=== PATIENT | female | born 1965 | race Caucasian/White ===

== ENCOUNTER 2016-02-28 15:47 | Emergency (ER) | payer OTHER ==
[~2016-02-28] VITALS: Ht 170.2 cm; Wt 80.7 kg
[~2016-02-28 15:47] MED LIST: BENADRYL ALLERG25 MG PO; KEFLEX500 M1 PO; MUPIROCIN22 GM TOP; NAPROSYN500 M1 PO; OMEPRAZOLE40 M1 PO; OXYCODONE HCL15 M1 PO; PEPCID20 MG PO; PREDNISONE 20MG20 MG PO; SERTRALINE HCL100 MG PO; SULFAMETHOXAZO1 EAC1 PO; TRIAMTERENE-HC1 EAC1 PO; ZOHYDRO ER50 M1 PO
--- NOTE | 2016-02-28 16:14 | ED UPPER/LOWER EXTREMITY COMPL ---
History of Present Illness General Chief Complaint: Lower Extremity Problems Stated Complaint: RIGHT LEG SWOLLEN AND HOT X1 DAY Source: patient, old records Exam Limitations: no limitations Vital Signs & Intake/Output Vital Signs & Intake/Output Vital Signs Date Time Temp Pulse Resp B/P Pulse O2 O2 Flow FiO2 Ox Delivery Rate 02/27 1722 98.1 69 16 132/74 100 Room Air 02/27 1630 99 Room Air 02/27 1552 97.9 69 16 156/84 94 Room Air Allergies Coded Allergies: Penicillins (UNKNOWN 07/24/15) vancomycin (UNKNOWN 07/24/15) Reconcile Medications Cephalexin (Keflex) 500 MG CAPSULE 1 TAB PO BID CELLULITIS Clindamycin HCl 300 MG CAPSULE 1 CAP PO TID cellulitis DIPHENHYDRAMINE HCL (Benadryl Allergy) 25 MG TABLET 1-2 TAB PO Q6P PRN allergy Famotidine (Pepcid) 20 MG TAB 1 TAB PO BID allergy Hydrocodone Bitartrate (Zohydro ER) 50 MG CAP.ER.12H 1 CAP PO BID PAIN ( Reported) Mupirocin 22 GM OINT...G. 1 PAULO TOP TID EAR (Reported) apply to affected area(s) Naproxen (Naprosyn) 500 MG TABLET 1 TAB PO BID PRN PAIN AND INFLAMMATION Omeprazole 40 MG CAPSULE.DR 1 CAP PO DAILY GI (Reported) Oxycodone HCl 15 MG TABLET 1 TAB PO 4 TIMES/DAY PAIN (Reported) Prednisone 20 MG TABLET 1 TAB PO BID allergy Sertraline HCl 100 MG TABLET 1 TAB PO DAILY MENTAL HEALTH (Reported) Sulfamethoxazole/Trimethoprim (Sulfamethoxazole-Tmp Ds Tablet) 1 EACH TABLET 1 TAB PO BID INFECTION (Reported) Triamterene/Hydrochlorothiazid (Triamterene-Hctz 37.5-25 MG Tb) 1 EACH TABLET 1 TAB PO DAILY HEART (Reported) Triage Note: PT STATES HE RIGHT LOWER EXT. IS SWOLLEN AND WARM. PT STATES THIS STARTED YESTERDAY. Triage Nurses Notes Reviewed? yes Onset: Abrupt Duration: day(s): (1), constant Timing: recent history Severity: mild, moderate Severity Numbers: 5 Pain/Injury Location: Right: Leg. Method of Injury: unknown No Modifying Factors: none Associated Symptoms: redness HPI: 50-year-old female presents to emergency room complaining of redness warmth and pain to her right lower extremity for the past 1 day. She states that she just shaved her legs however denies any known injury or trauma she denies any cuts or abrasions. No fever no chills no numbness or tingling. She denies any other rashes on her skin. She denies any other leg swelling chest pain shortness of breath. Symptoms are worse with palpation better at rest. She denies any other modifying factors or associated symptoms otherwise pain is aching and constant 5 out of 10 nonradiating. She is not taken anything for her symptoms (AMARILYS DAVIDSON) Past History Travel History Traveled to [place] past 21 day No Medical History Any Pertinent Medical History? see below for history Respiratory: asthma Gastrointestinal: GASTRIC BYPASS Musculoskeletal: CHRONIC HIP PAIN Tetanus Vaccine: 05/18/09 Surgical History Surgical History: non-contributory Psychosocial History What is your primary language Romansh Tobacco Use: Current Daily Use Daily Tobacco Use Amount/Type: => 5 Cigarettes daily ETOH Use: occasional use Illicit Drug Use: denies illicit drug use Family History Hx Contributory? No (AMARILYS DAVIDSON) Review of Systems Review of Systems Constitutional: Reports: see HPI. All Other Systems: Reviewed and Negative Comments Review of systems: See HPI, All other systems negative. Constitutional, no chills no fever, no malaise HEENT: no sore throat no congestion, no ear pain Cardiovascular: No chest pain , no palpitation Skin, see hpi Respiratory: No dyspnea no cough no sputum GI: No nausea no vomiting, no diarrhea, : No dysuria Muscle skeletal: No joint pain, no joint swelling, no back pain, no neck pain, Neurologic: , no headache Psych: No stress Heme/endocrine: No bruising no bleeding Immunology: No lymphadenopathy (AMARILYS DAVIDSON) Physical Exam Physical Exam General Appearance: well developed/nourished, alert, awake Comments: Well-developed well-nourished patient in no apparent distress. HEENT: Atraumatic, extraocular motion intact Neck: Supple, FROM Back: FROM Cardiovascular: Regular rate and rhythms no murmurs rubs Respiratory: No respiratory distress. Patient speaking in full complete sentences. Breath sounds clear to auscultation bilaterally: NO W/R/R upper Extremities: full range of motion Hip/Pelvis: Atraumatic/Stable. FROM Knee: Atraumatic/stable. FROM. No joint swelling, no effusion. No laxity. No pain with ROM Leg: Atraumatic. Nontender. No edema, 5 out of 5 strength in the lower extremity, normal dorsiflexion of great toe bilaterally, gross sensation is intact. Ankle/Foot: Atraumatic/stable. Skin intact. FROM. No swelling, no effusion. No laxity on exam Pulses: Normal/equal DP/PT pulses bilaterally. Brisk cap refill Neuro: Alert and oriented x3 Skin: Warm & dry; 8 x 7 cm area of erythema, warmth and tenderness over the medial aspect of the proximal right calf and anterior Trejo the skin is intact, no other rashes to the exposed skin Psych: Mood affect normal, normal memory normal judgment. (BRANDON SEVILLA,AMARILYS) Progress Differential Diagnosis: arterial insufficiency, cellulitis, compartment syndrome , contusion, dislocation, DVT, fracture, sprain Plan of Care: Discussed with the patient her ultrasound results symptoms are consistent with a cellulitis. Given allergies prescription for clindamycin was provided she'll follow up with her primary care physician for wound check in 48 hours. She'll return at that time if the symptoms persist and is unable to get in with her primary care physician. I answered all of her questions she was advised return anytime sooner with any concerns. I answer all of her questions she feels comfortable discharge plan of follow-up Diagnostic Imaging: Viewed by Me: Ultrasound. Discussed w/RAD: Ultrasound. Radiology Impression: PATIENT: RAMU ESPARZA PRESENT AGE: 50 PATIENT ACCOUNT NO: [id number] : 66 LOCATION: [facility] ORDERING PHYSICIAN: AMARILYS SEVILLA SERVICE DATE: 02/28/16 EXAM TYPE: US - US- UNILATERAL VENOUS DOPPLER EXAMINATION: US TRIPLEX LOWER EXTREMITY, RIGHT CLINICAL INFORMATION: Edema. COMPARISON: None. TECHNIQUE: Color-flow triplex imaging with spectral analysis and compression Doppler were performed on the right lower extremity. FINDINGS: Respiratory variation, normal compression and augmented flow are noted throughout the lower extremity. The visualized common femoral vein, superficial femoral vein, profunda femoral vein, popliteal vein and mid calf peroneal and posterior tibial venous segments show no evidence of deep venous thrombosis. There is no Mccord's cyst. There is a lymph node with normal ultrasound morphology with a short axis diameter of 1 cm in the right groin. IMPRESSION: Normal triplex scan without evidence of deep venous thrombosis involving the right lower extremity. DICTATED BY: CHAZ SUÁREZ MD DATE/TIME DICTATED:02/28/161647 POL[employer]UT[employer]NT PRECINCT:ELI DATE/TIME TRANSCRIBED:02/28/161647 CONFIDENTIAL, DO NOT COPY WITHOUT APPROPRIATE AUTHORIZATION. <Electronically signed in Other Vendor System> SIGNED BY: CHAZ SUÁREZ MD 02/28/16 1653 (AMARILYS DAVIDSON) Departure Departure Time of Disposition: 170 Disposition: HOME OR SELF CARE Condition: Stable Clinical Impression Primary Impression: Cellulitis Referrals: AMINATA SKELTON,JESUS MURPHY (PCP/Family) Additional Instructions: Follow-up with your primary care physician this week for wound check. Clindamycin as directed this prescription was sent here pharmacy. Return to the emergency room at any time sooner if you have worsening of your symptoms or any other concerns. Departure Forms: Customer Survey General Discharge Information Prescriptions: Current Visit Scripts Clindamycin HCl 1 CAP PO TID #30 CAP (AMARILYS DAVIDSON) PA/ACID WASHER OPERATOR Co-Sign Statement Statement: ED Attending supervision documentation- [] I saw and evaluated the patient. I have also reviewed all the pertinent lab results and diagnostic results. I agree with the findings and the plan of care as documented in the PA's/ACID WASHER OPERATOR's documentation. [X] I have reviewed the ED Record and agree with the PA's/ACID WASHER OPERATOR's documentation. [] Additions or exceptions (if any) to the PAs/ACID WASHER OPERATOR's note and plan are summarized below: [] (GRANT SKELTON,LEDA)
--- NOTE | 2016-02-28 16:53 | ULTRASOUND REPORT ---
EXAMINATION: US TRIPLEX LOWER EXTREMITY, RIGHT CLINICAL INFORMATION: Edema. COMPARISON: None. TECHNIQUE: Color-flow triplex imaging with spectral analysis and compression Doppler were performed on the right lower extremity. FINDINGS: Respiratory variation, normal compression and augmented flow are noted throughout the lower extremity. The visualized common femoral vein, superficial femoral vein, profunda femoral vein, popliteal vein and mid calf peroneal and posterior tibial venous segments show no evidence of deep venous thrombosis. There is no Mccord's cyst. There is a lymph node with normal ultrasound morphology with a short axis diameter of 1 cm in the right groin. IMPRESSION: Normal triplex scan without evidence of deep venous thrombosis involving the right lower extremity.
[2016-02-28] MEDS ORDERED: CLINDAMYCIN HC300 M1 PO (17:08)
[2016-02-28 17:22] VITALS: BP 132/74
== END 2016-02-28 17:23 ==
LOC: ERH 15:47
DX: L03.115 Cellulitis of right lower limb (principal)

== ENCOUNTER 2016-03-01 14:11 | Inpatient (IN) | payer OTHER ==
[~2016-03-01] VITALS: Ht 170.2 cm; Wt 80.7 kg
[~2016-03-01 14:11] MED LIST changes: +CLINDAMYCIN HC300 M1 PO
--- NOTE | 2016-03-01 14:16 | NUR ---
PT TO ED C/O WORSENING RLE CELLULITIS. PT WAS SEEN IN ED ON 02/27, SENT HOME WITH PO CLINDAMYCIN TID. HAS BEEN TAKING PRESCRIBED. STATES PAIN IS WORSE. REDNESS IS SPREADING AND LEG IS WARM TO TOUCH. DENIES FEVERS AT HOME. TEMP 100.9 IN TRIAGE.
--- NOTE | 2016-03-01 14:34 | NUR ---
PT TO ROOM 8, C/O PAIN AND REDNESS TO RIGHT LEG. PT REPORTS CELLULITIS HAS SPREAD FROM BELOW KNEE UP TO THIGH AREA AND IS PAINFUL. RLE IS MORE SWOLEN THAN LLE.
--- NOTE | 2016-03-01 15:00 | NUR ---
ROEL TAYLOR AT BEDSIDE FOR EVAL
--- NOTE | 2016-03-01 15:04 | ED SKIN/ALLERGY COMPLAINT ---
History of Present Illness General Chief Complaint: Skin Rash/ Abcess Stated Complaint: R LEG CELLULITIS, SEEN 02/27 NO RELIEF Source: patient, old records Exam Limitations: no limitations Vital Signs & Intake/Output Vital Signs & Intake/Output Vital Signs Date Time Temp Pulse Resp B/P Pulse O2 O2 Flow FiO2 Ox Delivery Rate 03/01 1628 99.4 106 16 116/71 99 Room Air 03/01 1431 Room Air 03/01 1414 100.7 76 20 125/78 99 Room Air Allergies Coded Allergies: Penicillins (UNKNOWN 07/24/15) vancomycin (UNKNOWN 07/24/15) Reconcile Medications Clindamycin HCl 300 MG CAPSULE 1 CAP PO TID cellulitis DIPHENHYDRAMINE HCL (Benadryl Allergy) 25 MG TABLET 1-2 TAB PO Q6P PRN allergy Hydrocodone Bitartrate (Zohydro ER) 50 MG CAP.ER.12H 1 CAP PO BID PAIN ( Reported) Omeprazole 40 MG CAPSULE.DR 1 CAP PO DAILY GI (Reported) Oxycodone HCl 15 MG TABLET 1 TAB PO 4 TIMES/DAY PAIN (Reported) Sertraline HCl 100 MG TABLET 1 TAB PO DAILY MENTAL HEALTH (Reported) Triamterene/Hydrochlorothiazid (Triamterene-Hctz 37.5-25 MG Tb) 1 EACH TABLET 1 TAB PO DAILY HEART (Reported) Triage Note: PT TO ED C/O WORSENING RLE CELLULITIS. PT WAS SEEN IN ED ON 02/27, SENT HOME WITH PO CLINDAMYCIN TID. HAS BEEN TAKING PRESCRIBED. STATES PAIN IS WORSE. REDNESS IS SPREADING AND LEG IS WARM TO TOUCH. DENIES FEVERS AT HOME. TEMP 100.9 IN TRIAGE. Triage Nurses Notes Reviewed? yes Onset: Abrupt Duration: day(s): (4), constant, getting worse Timing: recent history Severity: moderate Severity Numbers: 7 Location: extremities Possible Factors: no cause identified No Modifying Factors: none Associated Symptoms: fever HPI: 50-year-old female with history of gastric bypass, chronic hip pain for which she is in pain management presents to the emergency room for evaluation today plating of progressively worsening redness warmth and pain to her right lower extremity associated fever chills and generalized malaise. The patient was seen here by myself 2 days ago at which time she was started on clindamycin and had a negative ultrasound performed for DVT. She states since that time his symptoms have worsened. She states she has been compliant with taking the clindamycin. She denies any chest pain shortness of breath abdominal pain nausea vomiting or diarrhea. She denies any other rashes to her skin there are no modifying factors or associated symptoms otherwise. Past History Travel History Traveled to [place] past 21 day No Medical History Any Pertinent Medical History? see below for history Respiratory: asthma Gastrointestinal: GASTRIC BYPASS Musculoskeletal: CHRONIC HIP PAIN Tetanus Vaccine: 05/18/09 Surgical History Surgical History: non-contributory Psychosocial History What is your primary language Ugandan Tobacco Use: Current Daily Use Daily Tobacco Use Amount/Type: => 5 Cigarettes daily ETOH Use: denies use Illicit Drug Use: denies illicit drug use Family History Hx Contributory? No Review of Systems Review of Systems Constitutional: Reports: see HPI. All Other Systems: Reviewed and Negative Comments Review of systems: See HPI, All other systems negative. Constitutional, no chills fever, no malaise HEENT: No visual changes no sore throat no congestion, no ear pain Cardiovascular: No chest pain , no palpitation Skin, see hpi Respiratory: No dyspnea no cough no sputum GI: No nausea no vomiting, no diarrhea, no bloating/constipation : No dysuria Muscle skeletal: No joint pain, no back pain, no neck pain, Neurologic: No numbness no headache Psych: No stress no anxiety no depression,. Heme/endocrine: No bruising no bleeding Immunology: No lymphadenopathy, Physical Exam Physical Exam General Appearance: well developed/nourished, awake, comfortable Comments: Well-developed well-nourished person in no acute distress HEENT: Normal EENT exam; PERRL, EOMI. HEAD is atraumatic. moist mucous membranes. Neck: Supple, normal range of motion Back: Nontender, no CVA tenderness. Full range of motion Cardiovascular: Regular rate and rhythms no murmurs rubs Respiratory: CNo respiratory distress. Patient speaking in full complete sentences. Breath sounds clear to auscultation bilaterally: NO W/R/R Abdomen: Soft, nontender nondistended, no appreciable organomegaly. Extremity:2+ rle edema, full range of motion of extremities, normal and equal pulses bilaterally, 5 out of 5 strength noted to bilateral upper and lower extremities Neuro: Alert oriented x3, motor sensory normal, There were no obvious focal neurologic abnormalities. Skin: There is significant erythema to the medial aspect of the right mid werner that extends proximal to the mid thigh tenderness to palpation, and warmth skin is warm and dry. Psych: Mood and affect is normal, memory and judgment is normal.t. Progress Differential Diagnosis: abscess/cellulitis, allergic reaction, contact dermatitis, dvt, electrolyte abnormality sepsis Plan of Care: Orders Procedure Date/time Status Regular Diet 03/02 B Active Patient Data 03/01 165 Active Admit to inpatient 03/01 1643 Active LACTIC ACID 03/01 1508 Complete Saline Lock 03/01 1503 Active BLOOD CULTURE 03/01 1503 Active COMPREHENSIVE METABOLIC PANEL 03/01 1503 Complete CBC WITHOUT DIFFERENTIAL 03/01 1503 Complete Laboratory Tests 03/01/16 1528: Lactic Acid 0.8 03/01/16 1528: Anion Gap 11, Estimated GFR > 60, BUN/Creatinine Ratio 14.3, Glucose 96, Calcium 9.1, Total Bilirubin 0.6, AST 17, ALT 39, Alkaline Phosphatase 97, Total Protein 6.2 L, Albumin 3.5, Globulin 2.7, Albumin/Globulin Ratio 1.3, CBC w Diff NO MAN DIFF REQ, RBC 4.38, MCV 89.6, MCH 30.2, RDW 12.8, MPV 9.5, Gran % 65.2, Lymphocytes % 18.7 L, Monocytes % 15.0 H, Eosinophils % 0.5, Basophils % 0.6, Absolute Granulocytes 5.8, Absolute Lymphocytes 1.7, Absolute Monocytes 1.3 H, Absolute Eosinophils 0, Absolute Basophils 0.1, PUBS MCHC 33.8 Microbiology 03/01 1547 BLOOD: Blood Culture - RECD 03/01 1528 BLOOD: Blood Culture - RECD labs ordered, old records including previuos us from 02/28/16 reviewed. case d/w dr jorgensen will give pt dose of IV doxycycline here. I discussed the patient at length all of her lab results however given extensive spread of the erythema warmth pain and now fevers discussed R believe premature discharge would BE medically harmful which she is in agreement with. [id number] TANIA D/W DR GAITAN WILL ADMIT SERVICE DATE: 02/28/16-1619 EXAM TYPE: US - US-UNILATERAL VENOUS DOPPLER EXAMINATION: US TRIPLEX LOWER EXTREMITY, RIGHT CLINICAL INFORMATION: Edema. COMPARISON: None. TECHNIQUE: Color-flow triplex imaging with spectral analysis and compression Doppler were performed on the right lower extremity. FINDINGS: Respiratory variation, normal compression and augmented flow are noted throughout the lower extremity. The visualized common femoral vein, superficial femoral vein, profunda femoral vein, popliteal vein and mid calf peroneal and posterior tibial venous segments show no evidence of deep venous thrombosis. There is no Mccord's cyst. There is a lymph node with normal ultrasound morphology with a short axis diameter of 1 cm in the right groin. IMPRESSION: Normal triplex scan without evidence of deep venous thrombosis involving the right lower extremity. DICTATED BY: CHAZ SUÁREZ MD DATE/TIME DICTATED:02/28/161647 CLAIM INSPECTOR:ELI DATE/TIME TRANSCRIBED:02/28/161647 (AMARILYS DAVIDSON) Departure Departure Time of Disposition: 1643 Disposition: STILL A PATIENT Condition: Stable Clinical Impression Primary Impression: Cellulitis Referrals: AMINATA SKELTON,JESUS MURPHY (PCP/Family) Departure Forms: Customer Survey General Discharge Information Admission Note Spoke With: WILLIAM GAITAN MD Documentation of Exam: Documentation of any treatments & extenuating circumstances including Concerns Regarding Discharge (functional status, medication knowledge or non-compliance, living conditions, etc.) that warrant an admission rather than observation: Patient was seen here earlier this week for the same given extensive spread of the redness warmth pain patient is now presenting febrile. She has failed outpatient therapy patient is having difficulty walking secondary to pain. Kaushik discharged medically harmful to require IV antibiotics trend labs
--- NOTE | 2016-03-01 15:35 | NUR ---
LABS SENT (SST,LAV,SUAREZ) AND FIRST SET OF CULTURES
[2016-03-01 15:40] LABS: ABSOLUTE BASOPHIL COUNT 0.1 /CUMM (0.0-0.2); ABSOLUTE EOSINOPHIL COUNT 0 /CUMM (0.0-0.7); ABSOLUTE GRANULOCYTE CT 5.8 /CUMM (1.4-6.5); ABSOLUTE LYMPH COUNT 1.7 /CUMM (1.2-3.4); ABSOLUTE MONOCYTE COUNT 1.3 /CUMM (0.10-0.60); BASOPHIL % 0.6 % (0.0-2.0); EOSINOPHIL % 0.5 % (0-5); GRANULOCYTE % 65.2 % (42.2-75.2); HEMATOCRIT 39.2 % (37-47); MEAN CORPUSCULAR HGB 30.2 PG (27.0-31.0); MEAN CORPUSCULAR HGB CONC 33.8 G/DL (33.0-37.0); MEAN CORPUSCULAR VOLUME 89.6 FL (81.0-99.0); MEAN PLATELET VOLUME 9.5 FL (7.4-10.4); PLATELET COUNT 214 /CUMM (130-400); RBC DISTRIBUTION WIDTH 12.8 % (11.5-14.5); RED BLOOD CELL CT 4.38 /CUMM (4.20-5.40)
--- NOTE | 2016-03-01 15:48 | NUR ---
PT MEDICATED WITH TORADOL 30MG IV
--- NOTE | 2016-03-01 15:50 | NUR ---
SECOND SET OF CULTURES SENT
--- NOTE | 2016-03-01 16:13 | NUR ---
DOXYCYCLINE IN NS STARTED AT 100ML/HR
--- NOTE | 2016-03-01 16:48 | History & Physical ---
JEAN SKELTON,CARINE 03/01/16 9688: General Information and HPI MD Statement: I have seen and personally examined RAMU ESPARZA and documented this H&P. The patient is a 50 year old F who presented with worsening redness, swelling, and pain at right leg. Source of Information: patient Exam Limitations: no limitations History of Present Illness: 50 yo F with self-reported HTN (not on meds), multiple surgeries including gastirc bypass in 2008, open heart surgery for mitral valve problem at 14 months age, came to the Emergency Department after having increased redness, swelling, and pain over right leg. She had visited the ED two days ago 02/28/16, for the same reason with much less extent of the problem, and was sent home with diagnosis of cellulitis and oral antibiotics Clindamycin. According to the patient, she was in her usual state of health until last week, when she shaved her leg and shortly after that she started to notice a small area of redness and slight pain over upper part of her right leg, which progressively worsened and she visited the ED. She was discharged with oral Clindamycin which she mentions that she has been compliant with. But today, she had to come back to the ED because fo worsening redness over larger area of the leg extending upto her inner thigh (right), swelling, and severe pain 10/10. She denies any other trauma, fall, insect bite, any open wound or pimple to begin with, no sick contacts, no travel history, no headache, no rashes in any other part of the body. ROS was otherwise normal. Allergies/Medications Allergies: Coded Allergies: Penicillins (UNKNOWN 07/24/15) vancomycin (UNKNOWN 07/24/15) Home Med list Clindamycin HCl 300 MG CAPSULE 1 CAP PO TID cellulitis DIPHENHYDRAMINE HCL (Benadryl Allergy) 25 MG TABLET 1-2 TAB PO Q6P PRN allergy Hydrocodone Bitartrate (Zohydro ER) 50 MG CAP.ER.12H 1 CAP PO BID PAIN ( Reported) Omeprazole 40 MG CAPSULE.DR 1 CAP PO DAILY GI (Reported) Oxycodone HCl 15 MG TABLET 1 TAB PO 4 TIMES/DAY PAIN (Reported) Sertraline HCl 100 MG TABLET 1 TAB PO DAILY MENTAL HEALTH (Reported) Triamterene/Hydrochlorothiazid (Triamterene-Hctz 37.5-25 MG Tb) 1 EACH TABLET 1 TAB PO DAILY HEART (Reported) Past History Travel History Traveled to [place] past 21 day No Medical History Respiratory: asthma Gastrointestinal: GASTRIC BYPASS Musculoskeletal: CHRONIC HIP PAIN Tetanus Vaccine: 05/18/09 Surgical History Surgical History: non-contributory Past Family/Social History Psychosocial History Where do you live? Home Primary Language: Wolof Smoking Status: Heavy Tobacco Smoker ETOH Use: denies use Illicit Drug Use: denies illicit drug use Functional Ability ADLs Independent: dressing, eating, toileting, bathing. Ambulation: independent IADLs Independent: shopping, housework, finances, food prep, telephone, transportation , medication admin. Review of Systems Review of Systems Constitutional: Reports: fever. Denies: chills, diaphoresis, malaise, weakness, unexplained weight loss. EENTM: Reports: no symptoms. Cardiovascular: Reports: no symptoms. Respiratory: Reports: no symptoms. GI: Reports: no symptoms. Genitourinary: Reports: no symptoms. Musculoskeletal: Reports: no symptoms. Skin: Reports: see HPI, erythema (right leg), rash (right leg). Neurological/Psychological: Reports: no symptoms. Hematologic/Endocrine: Reports: no symptoms. All Other Systems: Reviewed and Negative Exam & Diagnostic Data Last 24 Hrs of Vital Signs/I&O Vital Signs Date Time Temp Pulse Resp B/P Pulse O2 O2 Flow FiO2 Ox Delivery Rate 03/01 1628 99.4 106 16 116/71 99 Room Air 03/01 1431 Room Air 03/01 1414 100.7 76 20 125/78 99 Room Air Intake & Output 03/01 1600 03/01 0800 03/01 0000 Intake Total Output Total Balance Patient 80.739 kg Weight Physical Exam General Appearance Alert, Oriented X3, Cooperative, No Acute Distress Skin No Breakdown, Right lower extremity has erythematous rash extending from mid leg to mid thigh, mostly intter thigh, no open wound, slightly indurated below knee medially around 2x3cm, is warm, and tender HEENT Atraumatic, PERRLA, EOMI, Mucous Membr. moist/pink Neck Supple, No JVD Lymphatic Cervical nl Cardiovascular Regular Rate, Normal S1, Normal S2, No Murmurs Lungs Clear to Auscultation, Normal Air Movement Abdomen Normal Bowel Sounds, Soft, No Tenderness Neurological grossly intact Extremities No Clubbing, No Cyanosis, Normal Pulses, See above in skin finding, edema, redness, tenderness present over right leg Vascular Normal Pulses, Pulses Symmetrical Last 24 Hrs of Labs/Juan: Laboratory Tests 03/01/16 1528: Lactic Acid 0.8 03/01/16 1528: Anion Gap 11, Estimated GFR > 60, BUN/Creatinine Ratio 14.3, Glucose 96, Calcium 9.1, Total Bilirubin 0.6, AST 17, ALT 39, Alkaline Phosphatase 97, Total Protein 6.2 L, Albumin 3.5, Globulin 2.7, Albumin/Globulin Ratio 1.3, CBC w Diff NO MAN DIFF REQ, RBC 4.38, MCV 89.6, MCH 30.2, RDW 12.8, MPV 9.5, Gran % 65.2, Lymphocytes % 18.7 L, Monocytes % 15.0 H, Eosinophils % 0.5, Basophils % 0.6, Absolute Granulocytes 5.8, Absolute Lymphocytes 1.7, Absolute Monocytes 1.3 H, Absolute Eosinophils 0, Absolute Basophils 0.1, PUBS MCHC 33.8 Microbiology 03/01 1547 BLOOD: Blood Culture - RECD 03/01 1528 BLOOD: Blood Culture - RECD Diagnostic Data EKG Results not done CXR Results not done Assessment/Plan Assessment: 50 yo F with self-reported HTN (not on meds), multiple surgeries including gastirc bypass in 2008, open heart surgery for mitral valve problem at 14 months age, came to the Emergency Department after having increased redness, swelling, and pain over right leg. She had visited the ED two days ago 02/28/16, for the same reason with much less extent of the problem, and was sent home with diagnosis of cellulitis and oral antibiotics Clindamycin. She is being treated in the general medical floor for the following issues: #Right lower extermity cellulitis, with outpatient oral abx treatment failure Patient had beed diagnosed and treated for cellulitis with oral Clindamycin, with no response. Doppler of lower legs was negative for DVT two days when diagnosed initially. -Plan to change abs to Unasyn. Patient was explained about the allergy. -Follow blood cultures -Pain management per her own pain plan. She has been taking prescribed narcotics for her low back pain and hip pain, and requested to continue same pain meds. -Elevate right limb. -Follow up AM CBC. #GERD -Continue home med Omeprazole 20mg #Nicotine dependance -Patient will be provided with Nicotine patch while being admitted #Diet: Regular diet #DVT ppx: Heparin SQ TID #Code status: Full code As Ranked By This Provider Problem List: 1. Cellulitis 2. GERD (gastroesophageal reflux disease) 3. Nicotine dependence Core Measures/Miscellaneous Acute Coronary Syndrome ACS Diagnosis: No Cerebrovascular Accident CVA/TIA Diagnosis: No Congestive Heart Failure CHF Diagnosis: No Venous Thromboembolism VTE Risk Factors: Age > 40, Smoking VTE Prophylaxis Ordered Inpt: [facility] prophylaxis d/t: No contraindications No VTE Pharm Prophylaxis d/t: No contraindications VTE Diagnosis: No VTE Type: NONE VTE Confirmed by (Test): NONE Severe Sepsis Severe Sepsis Present: No Septic Shock Septic Shock Present: No Miscellaneous Documentation Attending Case Discussed With: WILLIAM GAITAN MD Primary Care Physician: JESUS COATES MD Patient sees these Specialists Internal Medicine Level of Patient Care: General Medicine LAUREL ARMENTA 03/01/16 1737: Resident Review Statement Resident Statement: examined this patient, discussed with marketing operations intern, agreed with marketing operations intern, discussed with family, reviewed EMR data (avail), discussed with nursing , discussed with case mgmt, reviewed images, amended to note Other Findings: 50-year-old woman with past medical history significant for childhood asthma, gastric bypass in 2008 no follow-up, chronic hip pain presented in the emergency room for erythema and tenderness of right lower extremity. Patient was seen in February 27 in the emergency room and was clinically diagnosed with the cellulitis of right lower extremity and was started on by mouth clindamycin. Patient denies any trauma to the affected limb but she recalls that she shaved her leg may be 2-3 days before her symptoms a started on February 25. Patient denies any nausea, vomiting, diarrhea, chest pain, palpitation, shortness of breath, cough and sputum production. Despite being compliant with her medication patient's history presented at the emergency room today after her symptoms continue to persist/worsen. Upon arrival patient had fever of 100.7 pulse rate 76. Review of system patient is complaining of back pain and right lower extremity warmth and tenderness. Physical exam: Patient is alert and oriented 3 and cardiovascular and lung exam within normal limits, right lower extremity: Swelling compared to left side, erythema and tenderness. No nancy pus and no drainage. Social history: Smoker 1 pack a day for 30 years, denies EtOH and illegal drug abuse Family history: Hypertension and diabetes in mother Pertinent data respiratory rate 20 blood pressure 125/78 saturation 99% in room air. WBC 9, hemoglobin and hematocrit 13.2 and 39.2, and platelets 214 Sodium 134 potassium 4.2 BUN 10 and creatinine 0.7 Doppler US from two days ago was negative, Active issues #1 nonpurulent cellulitis * Admit the patient to general medical floor * Started patient on IV Unasyn; allergy was checked: Rash and hive after receiving penicillin * Follow blood cultures * Pain management; resume her own pain medication * Elevates the affected limb * Daily CBC #2 reflux * Omeprazole 20 mg by mouth daily #3 nicotine dependence * Nicotine patch 14 mg Full code WILLIAM GAITAN MD 03/02/16 1613: Attending MD Review Statement Attending Statement Attending MD Statement: examined this patient, discuss w/resident/PA/LAMP TESTER AND INSPECTOR, agreed w/resident/PA/LAMP TESTER AND INSPECTOR, reviewed EMR data (avail) Attending Assessment/Plan: 50F PMH diet-controlled HTN, gastric bypass 2008 admitted with RLE cellulitis failing outpatient therapy. Cellulitis extends from inner upper thigh to inner calf, with mild erythema, warmth, and diffuse tenderness. Reports constant pain along that area, with small area of weeping on posterior thigh. Denies fever, chills, but reports feeling ill. Started Clindamycin 3 days ago and cellulitis has worsened since. No prior similar symptoms. Had a provoked DVT 20 years ago after childbirth. Plan - Admit to general medicine - Start Unasyn (reports rash with penicillin but has not had it in decades, tolerates first dose without difficulty) - Follow blood cultures - Monitor borders of cellulitis - If no improvement obtain ID consult - Obtain x-ray of right ankle due to edema - Podiatry consult for onychomycosis - Discontinue PRN Oxycodone, start Dilaudid 1mg q4h PRN - Bowel regimen to prevent constipation - Obtain surgery consult - DVT PPx
--- NOTE | 2016-03-01 17:08 | NUR ---
HOUSE STAFF AT BEDSIDE
--- NOTE | 2016-03-01 18:13 | NUR ---
PT MEDICATED WITH ROXICODONE 15MG, PRILOSEC 20MG, HEPARIN 5000 UNITS SQ, TYLENOL 650MG AND NICOTINE PATCH 14MG APPLIED TO RIGHT UPPER ARM
--- NOTE | 2016-03-01 18:27 | NUR ---
BED ASSIFGNMENT [id number]
--- NOTE | 2016-03-01 18:31 | NUR ---
CALLED DIETARY FOR DINNER TRAY
[2016-03-01 20:16] VITALS: BP 112/60
--- NOTE | 2016-03-01 20:36 | NUR ---
PT ARRIVED AT 1999 ON STRETCHER. PT SLIDED TO BED FROM STRETCHER DUE TO PAIN IN RLE. RLE EDEMATOUS AND RED. TRACE EDMA FROM RLE TO INNER THIGH. DAUGHTER ARRIVED WITH PATIENT. CELL PHONE AND IPAD BROUGHT UP WITH THE PATIENT. PT COMFORTABLE. BED ALARM WITHIN REACH.
[2016-03-01 22:55] VITALS: BP 112/60
[2016-03-02 06:23] VITALS: BP 100/62
--- NOTE | 2016-03-02 07:32 | PN- Housestaff ---
See Addendum Subjective Follow-up For: right leg cellulitis Complaints: right ankle swelling, pain Subjective: I examined the patient today. Patient is complaining of right ankle swelling, more than yesterday. Patient also complains of inadequate pain control. Vitals have been stable overnight, no overnight issues. Review of Systems Constitutional: Reports: no symptoms. Cardiovascular: Reports: no symptoms. Respiratory: Reports: no symptoms. Musculoskeletal: Reports: see HPI. Skin: Reports: erythema. Objective Last 24 Hrs of Vital Signs/I&O Vital Signs Date Time Temp Pulse Resp B/P Pulse O2 O2 Flow FiO2 Ox Delivery Rate 03/02 1531 99.1 66 18 100/60 95 03/02 1200 99.7 03/02 0623 98.1 59 18 100/62 97 Room Air 03/01 2255 97.8 58 20 112/60 96 Room Air 03/01 2016 97.5 58 20 112/60 96 Room Air 03/01 1933 98.7 99 16 114/56 98 Room Air 03/01 1852 99.2 03/01 1811 100.5 03/01 1754 100.5 60 16 111/65 98 Room Air 03/01 1628 99.4 106 16 116/71 99 Room Air Intake & Output 03/02 1600 03/02 0800 03/02 0000 Intake Total 2100 700 230 Output Total Balance 2100 700 230 Intake, IV 100 300 110 Intake, Oral 2000 400 120 Patient 80.739 kg Weight Physical Exam General Appearance: Alert, Oriented X3, Cooperative, Mild Distress Skin: erythema over right leg has increased, extending more over her right thigh. A christina with surgical marker has been placed. Cardiovascular: Regular Rate, Normal S1, Normal S2, No Murmurs Lungs: Clear to Auscultation, Normal Air Movement Abdomen: Normal Bowel Sounds, Soft, No Tenderness Neurological: grossly intact Extremities: see the description in the skin finding Current Medications: Current Medications Sig/Allie Start time Last Medication Dose Route Stop Time Status Admin Acetaminophen 650 MG Q4P PRN 03/02 1215 AC 03/02 PO 1223 Acetaminophen 650 MG .STK-MED ONE 03/02 0325 DC PO 03/02 0326 Acetaminophen 650 MG Q4P PRN 03/01 1800 DC 03/02 PO 0328 Acetaminophen 0 .STK-MED ONE 03/01 1756 DC PO Ampicillin Sodium/ 1,500 MG Q6 03/01 2359 AC 03/02 Sulbactam Sodium IV 1207 Sodium Chloride 100 ML Ampicillin Sodium/ 3,000 MG Q6 03/01 1800 CAN Sulbactam Sodium IV Sodium Chloride 100 ML Ampicillin Sodium/ 0 .STK-MED ONE 03/01 1757 CAN Sulbactam Sodium .ROUTE Doxycycline Hyclate 100 MG ONCE ONE 03/01 1515 DC 03/01 Sodium Chloride 100 ML IV 03/01 1620 1612 Heparin Sodium 5,000 UNIT Q8 03/01 2200 CAN (Porcine) SC Heparin Sodium 0 .STK-MED ONE 03/01 1756 DC (Porcine) .ROUTE Heparin Sodium 5,000 UNIT Q8 03/01 1744 AC 03/02 (Porcine) SC 1408 Hydromorphone HCl 1 MG Q4P PRN 03/02 1500 AC IV Influenza Virus 0.5 ML ONCE ONE 03/01 2030 DC Vaccine IM 03/01 2031 Nicotine 0 .STK-MED ONE 03/01 1757 DC TOP Nicotine 14 MG DAILY 03/01 1743 AC 03/02 TOP 0910 Non-Formulary 0 SEE ADMIN CRITERIA 03/01 1745 DC Medication ANY Omeprazole 0 .STK-MED ONE 03/01 1757 DC PO Omeprazole 20 MG DAILY AC 03/01 1743 AC 03/02 PO 0643 Oxycodone HCl 15 MG Q4P PRN 03/02 0900 DC 03/02 PO 1408 Oxycodone HCl 50 MG BID 03/01 2200 AC 03/02 PO 0910 Oxycodone HCl 15 MG Q6P PRN 03/01 1915 DC 03/02 PO 0601 Oxycodone HCl 0 .STK-MED ONE 03/01 1801 DC PO Oxycodone HCl 15 MG Q6 03/01 1800 DC 03/01 PO 1811 Patient Medication 1 UNIT ONE NR 03/01 181 VT Teaching ED 03/01 1830 Patient Medication 1 UNIT ONE NR 03/01 181 VT Teaching ED 03/01 1830 Patient Medication 1 UNIT ONE NR 03/01 181 VT Teaching ED 03/01 1830 Last 24 Hrs of Lab/Juan Results Last 24 Hrs of Labs/Mics: Laboratory Tests 03/02/16 0550: CBC w Diff NO MAN DIFF REQ, RBC 3.94 L, MCV 89.9, MCH 30.3, RDW 13.1, MPV 10.6 H, Gran % 57.3, Lymphocytes % 25.5, Monocytes % 16.0 H, Eosinophils % 0.8, Basophils % 0.4, Absolute Granulocytes 3.6, Absolute Lymphocytes 1.6, Absolute Monocytes 1.0 H, Absolute Eosinophils 0, Absolute Basophils 0, PUBS MCHC 33.7 03/01/16 1808: Lactic Acid Cancelled Assessment/Plan Assessment: 50-year-old female with self-reported hypertension not on medication, multiple surgeries in the past, is here for treatment of right leg cellulitis after treatment failure from oral antibiotics. #Right lower extremity cellulitis Redness and pain has increased compared to yesterday. Pain medications changed, increased to hydromorphone. She complained of right ankle swelling, for which an x-ray has been ordered. Pending report. #GERD Continue omeprazole #Nicotine dependence Continue nicotine patch Regular diet DVT prophylaxis with heparin subcutaneous 3 times a day Full CODE STATUS Problem List: 1. Cellulitis 2. GERD (gastroesophageal reflux disease) 3. Nicotine dependence Pain Ratin Pain Location: Right leg, right ankle Pain Goal: Pain 4 or less Pain Plan: Hydromorphone, oxycodone continue release Tomorrow's Labs & Rationales: CBC
[2016-03-02 07:41] LABS: ABSOLUTE BASOPHIL COUNT 0 /CUMM (0.0-0.2); ABSOLUTE EOSINOPHIL COUNT 0 /CUMM (0.0-0.7); ABSOLUTE GRANULOCYTE CT 3.6 /CUMM (1.4-6.5); ABSOLUTE LYMPH COUNT 1.6 /CUMM (1.2-3.4); BASOPHIL % 0.4 % (0.0-2.0); EOSINOPHIL % 0.8 % (0-5); GRANULOCYTE % 57.3 % (42.2-75.2); HEMATOCRIT 35.4 % (37-47); MEAN CORPUSCULAR HGB 30.3 PG (27.0-31.0); MEAN CORPUSCULAR HGB CONC 33.7 G/DL (33.0-37.0); MEAN CORPUSCULAR VOLUME 89.9 FL (81.0-99.0); MEAN PLATELET VOLUME 10.6 FL (7.4-10.4); PLATELET COUNT 173 /CUMM (130-400); RBC DISTRIBUTION WIDTH 13.1 % (11.5-14.5); RED BLOOD CELL CT 3.94 /CUMM (4.20-5.40); WHITE BLOOD CELL COUNT 6.4 /CUMM (4.8-10.8)
[2016-03-02 15:31] VITALS: BP 100/60
--- NOTE | 2016-03-02 16:18 | PN- Att Addend ---
Attending Addendum Attending Brief Note 50F PMH diet-controlled HTN, gastric bypass 2008 admitted with RLE cellulitis failing outpatient therapy. Cellulitis extends from inner upper thigh to inner calf, with mild erythema, warmth, and diffuse tenderness. Reports constant pain along that area, with small area of weeping on posterior thigh. Denies fever, chills, but reports feeling ill. Started Clindamycin 3 days ago and cellulitis has worsened since. No prior similar symptoms. Had a provoked DVT 20 years ago after childbirth. Laboratory Tests 03/02/16 0550: CBC w Diff NO MAN DIFF REQ, RBC 3.94 L, MCV 89.9, MCH 30.3, RDW 13.1, MPV 10.6 H, Gran % 57.3, Lymphocytes % 25.5, Monocytes % 16.0 H, Eosinophils % 0.8, Basophils % 0.4, Absolute Granulocytes 3.6, Absolute Lymphocytes 1.6, Absolute Monocytes 1.0 H, Absolute Eosinophils 0, Absolute Basophils 0, PUBS MCHC 33.7 03/01/16 1808: Lactic Acid Cancelled Vital Signs Date Time Temp Pulse Resp B/P Pulse O2 O2 Flow FiO2 Ox Delivery Rate 03/02 1531 99.1 66 18 100/60 95 03/02 1200 99.7 Intake & Output 03/02 1600 Intake Total 2100 Output Total Balance 2100 Intake, IV 100 Intake, Oral 2000 Plan - Admit to general medicine - Start Unasyn (reports rash with penicillin but has not had it in decades, tolerates first dose without difficulty) - Follow blood cultures - Monitor borders of cellulitis - If no improvement obtain ID consult - Obtain x-ray of right ankle due to edema - Podiatry consult for onychomycosis - Discontinue PRN Oxycodone, start Dilaudid 1mg q4h PRN - Bowel regimen to prevent constipation - Obtain surgery consult - DVT PPx
--- NOTE | 2016-03-02 20:28 | RADIOLOGY REPORT ---
EXAMINATION: XR ANKLE, RIGHT CLINICAL INFORMATION: Pain and swelling COMPARISON: None TECHNIQUE: AP, lateral, and mortise views of the right ankle. FINDINGS: There is no acute fracture or dislocation of the right ankle. The ankle mortise is within normal limits. There is moderate soft tissue swelling along the medial aspect of the visualized lower leg and medial malleolus. There are prominent veins in the medial aspect of the visualized leg, suggesting varicose veins. There is no soft tissue air or radiodense foreign body. Dorsal and plantar calcaneal spurs are present. IMPRESSION: 1. No acute fracture or dislocation of right ankle. 2. Moderate medial malleolar soft tissue swelling and also soft tissue swelling of the visualized medial aspect of the right leg. Findings could represent right lower extremity edema due to venous insufficiency, however possibility of ligamentous injury of medial malleolus is not excluded. Clinical correlation is suggested.
[2016-03-02 22:23] VITALS: BP 102/60
--- NOTE | 2016-03-03 05:00 | NUR ---
PT REQUESTING TO SEE DOCTOR FOR WORSENING LT INNER THIGH PAIN AND SWELLING; TELEPHONE SURVEYOR INDUSTRIAL RELATIONS OFFICER NOTIFIED; TELEPHONE SURVEYOR TO PASS PT CONCERNS TO MORNING TEAM FOR F/U.
[2016-03-03 06:34] VITALS: BP 112/66
[2016-03-03 08:33] LABS: ABSOLUTE BASOPHIL COUNT 0 /CUMM (0.0-0.2); ABSOLUTE EOSINOPHIL COUNT 0 /CUMM (0.0-0.7); ABSOLUTE GRANULOCYTE CT 4.7 /CUMM (1.4-6.5); ABSOLUTE LYMPH COUNT 1.4 /CUMM (1.2-3.4); ABSOLUTE MONOCYTE COUNT 1.3 /CUMM (0.10-0.60); BASOPHIL % 0.4 % (0.0-2.0); EOSINOPHIL % 0.4 % (0-5); GRANULOCYTE % 62.8 % (42.2-75.2); MEAN CORPUSCULAR HGB 30.4 PG (27.0-31.0); MEAN CORPUSCULAR HGB CONC 33.9 G/DL (33.0-37.0); MEAN CORPUSCULAR VOLUME 89.6 FL (81.0-99.0); MEAN PLATELET VOLUME 10.7 FL (7.4-10.4); PLATELET COUNT 188 /CUMM (130-400); RBC DISTRIBUTION WIDTH 12.8 % (11.5-14.5); WHITE BLOOD CELL COUNT 7.4 /CUMM (4.8-10.8)
--- NOTE | 2016-03-03 08:39 | PN- Housestaff ---
KATHY CROCKETT 03/03/16 0839: Subjective Follow-up For: cellulits Subjective: seen and examined patient, complains of worsening swelling and and pain of right upper thigh swelling. Overnight spiked fever and this morning as well. Denies chills, chest pain, shortness of breath Review of Systems Constitutional: Reports: fever. Denies: chills, diaphoresis, malaise, weakness, unexplained weight loss. Cardiovascular: Denies: chest pain, edema, orthopena, palpitations, peripheral edema, syncope. Respiratory: Denies: cough, hemoptysis, orthopnea, short of breath, sputum production, stridor, wheezing. Objective Last 24 Hrs of Vital Signs/I&O Vital Signs Date Time Temp Pulse Resp B/P Pulse O2 O2 Flow FiO2 Ox Delivery Rate 03/03 0847 101.3 03/03 0634 99.4 71 18 112/66 97 Room Air 03/02 2223 98.4 62 20 102/60 96 Room Air 03/02 2004 98.3 03/02 2000 98.3 03/02 1905 100.9 03/02 1531 99.1 66 18 100/60 95 03/02 1200 99.7 Intake & Output 03/03 1600 03/03 0800 03/03 0000 Intake Total 500 600 Output Total Balance 500 600 Intake, IV 200 Intake, Oral 300 600 Physical Exam General Appearance: Alert, Oriented X3, Cooperative, No Acute Distress Skin: areas of improved erythema noted Cardiovascular: Regular Rate, Normal S1, Normal S2 Lungs: Clear to Auscultation, Normal Air Movement Abdomen: Normal Bowel Sounds, Soft, No Tenderness Extremities: right upper thigh swelling noted Current Medications: Current Medications Sig/Allie Start time Last Medication Dose Route Stop Time Status Admin Acetaminophen 650 MG Q4P PRN 03/02 1215 AC 03/03 PO 0847 Acetaminophen 650 MG Q4P PRN 03/01 1800 DC 03/02 PO 0328 Ampicillin Sodium/ 1,500 MG Q6 03/01 2359 AC 03/03 Sulbactam Sodium IV 0516 Sodium Chloride 100 ML Bisacodyl 5 MG DAILY 03/03 1000 AC PO Heparin Sodium 5,000 UNIT Q8 03/01 1744 AC 03/03 (Porcine) SC 0515 Hydromorphone HCl 2 MG Q5 PRN 03/03 1000 AC IV Hydromorphone HCl 1 MG Q4P PRN 03/02 1500 DC 03/03 IV 0840 Melatonin 5 MG AT BEDTIME 03/02 2199 AC 03/02 PO 2158 Nicotine 14 MG DAILY 03/01 1742 AC 03/02 TOP 0910 Omeprazole 20 MG DAILY AC 03/01 1742 AC 03/03 PO 0840 Oxycodone HCl 15 MG Q4P PRN 03/03 1000 AC PO Oxycodone HCl 15 MG Q4P PRN 03/02 0900 DC 03/02 PO 1408 Oxycodone HCl 50 MG BID 03/01 2199 AC 03/02 PO 2158 Vancomycin HCl 1,000 MG ONCE ONE 03/03 1045 CANr Dextrose/Water 250 ML IV 03/03 1144 Last 24 Hrs of Lab/Juan Results Last 24 Hrs of Labs/Mics: Laboratory Tests 03/03/16 0624: CBC w Diff NO MAN DIFF REQ, RBC 3.90 L, MCV 89.6, MCH 30.4, RDW 12.8, MPV 10.7 H, Gran % 62.8, Lymphocytes % 19.3 L, Monocytes % 17.1 H, Eosinophils % 0.4, Basophils % 0.4, Absolute Granulocytes 4.7, Absolute Lymphocytes 1.4, Absolute Monocytes 1.3 H, Absolute Eosinophils 0, Absolute Basophils 0, PUBS MCHC 33.9 03/02/16 1945: Anion Gap 11, Estimated GFR > 60, BUN/Creatinine Ratio 15.0 Microbiology 03/03 955 URINE ROUT: Urine Culture - COLB 03/03 955 BLOOD: Blood Culture - COLB 03/03 955 BLOOD: Blood Culture - COLB Assessment/Plan Assessment: 50-year-old woman with self-reported hypertension not on medication, multiple surgeries in the past, is here for treatment of right leg cellulitis after failing outpt management. continues to spike fevers and complains of right upper thigh swelling #Right lower extremity cellulitis Tmax 101.3 this morning, no increase in white count complains of right upper thigh swelling will obtain blood/urine cultures on Unasyn 1.5mg q6 day 3 #GERD Continue omeprazole #Nicotine dependence Continue nicotine patch Regular diet DVT prophylaxis with heparin subcutaneous 3 times a day Full CODE STATUS Problem List: 1. Cellulitis 2. GERD (gastroesophageal reflux disease) 3. Nicotine dependence Pain Ratin Pain Location: right leg Pain Goal: Pain 4 or less Pain Plan: will increase dilaudid to 2mg q5 add rodo (home meds) for break through pain Tomorrow's Labs & Rationales: cellulitis :cbc hypona:bep ARNIE SKELTON,WILLIAM 03/03/16 1225: Attending MD Review Statement Attending Statement Attending MD Statement: examined this patient, discuss w/resident/PA/APPLICATION DEVELOPMENT CONSULTANT, agreed w/resident/PA/APPLICATION DEVELOPMENT CONSULTANT, reviewed EMR data (avail) Attending Assessment/Plan: 50F PMH diet-controlled HTN, gastric bypass 2008 admitted with RLE cellulitis failing outpatient therapy. Cellulitis extends from inner upper thigh to inner calf, with mild erythema, warmth, and diffuse tenderness. Reports constant pain along that area, with small area of weeping on posterior thigh. Denies fever, chills, but reports feeling ill. Started Clindamycin 3 days prior to admission and cellulitis has worsened since. No prior similar symptoms. Had a provoked DVT 20 years ago after childbirth. Today patient feels a bit better overall, but induration and warmth on interior aspect of right thigh appears worsened. Spiked to 101 overnight. Stable BP. WBC normal. Possible thrombophlebitis. Plan - Obtain doppler of RLE - Warm compresses of leg, stop cold compresses - Start Motrin 400mg q6h standing - Continue Unasyn (no evidence of allergy thus far, patient reports adverse reaction when she was an ) - Follow blood cultures - Monitor borders of cellulitis - Follow ID recommendations - Right ankle x-ray shows only edema without fracture - Podiatry consult for onychomycosis - Continue Dilaudid PRN (patient is on chronic opioids and may require higher doses) - Bowel regimen to prevent constipation - Obtain surgery consult - DVT PPx
--- NOTE | 2016-03-03 11:52 | Cons- Infect Disease ---
General Information and HPI Consulting Request Date of Consult: 03/03/16 Requested By: WILLIAM GAITAN MD Reason for Consult: Cellulitis right leg Source of Information: patient, family History of Present Illness: This is a 50-year-old woman status post mitral valve repair at 14 months of age, status post gastric bypass surgery 7 years prior to admission, with chronic right hip pain, seen in the emergency room 2 days prior to admission with 1 day of redness, swelling and pain on the medial aspect of her right knee, with no history of trauma, found to be afebrile with a Doppler of the right leg negative , discharged on Clindamycin, admitted on March 01 after returning to the emergency room with increasing erythema, pain and swelling up the medial aspect of her right thigh. On admission she was febrile to 100.7. Laboratory data revealed a white blood cell count of 9000, BUN/creatinine 10 and 0.7, with normal liver enzymes. She was given a dose of Doxycycline and then placed on Unasyn, which she tolerated despite her remote history of Penicillin allergy. She has remained febrile since admission. She notes some improvement in the erythema but reports continued pain and swelling of her right lower extremity. Allergies/Medications Allergies: Coded Allergies: Penicillins (UNKNOWN 07/24/15) vancomycin (UNKNOWN 07/24/15) Home Med List: Clindamycin HCl 300 MG CAPSULE 1 CAP PO TID cellulitis DIPHENHYDRAMINE HCL (Benadryl Allergy) 25 MG TABLET 1-2 TAB PO Q6P PRN allergy Hydrocodone Bitartrate (Zohydro ER) 50 MG CAP.ER.12H 1 CAP PO BID PAIN ( Reported) Omeprazole 40 MG CAPSULE.DR 1 CAP PO DAILY GI (Reported) Oxycodone HCl 15 MG TABLET 1 TAB PO 4 TIMES/DAY PAIN (Reported) Sertraline HCl 100 MG TABLET 1 TAB PO DAILY MENTAL HEALTH (Reported) Triamterene/Hydrochlorothiazid (Triamterene-Hctz 37.5-25 MG Tb) 1 EACH TABLET 1 TAB PO DAILY HEART (Reported) Past History Travel History Traveled to [place] past 21 day No Medical History Blood Transfusion Hx: No Respiratory: asthma Gastrointestinal: GASTRIC BYPASS Musculoskeletal: CHRONIC HIP PAIN Isolation History: Standard Tetanus Vaccine: 05/18/09 Surgical History Surgical History: hysterectomy, GASTRIC BYPASS 2008, status post mitral valve surgery 14 months of age Psychosocial History Where Do You Live? Home Primary Language: Nepali Smoking Status: Heavy Tobacco Smoker ETOH Use: denies use Illicit Drug Use: denies illicit drug use Functional Ability ADLs Independent: dressing, eating, toileting, bathing. Ambulation: independent IADLs Independent: shopping, housework, finances, food prep, telephone, transportation , medication admin. Review of Systems Review of Systems All Other Systems: Reviewed and Negative Exam & Diagnostic Data Last 24 Hrs of Vital Signs/I&O Vital Signs Date Time Temp Pulse Resp B/P Pulse O2 O2 Flow FiO2 Ox Delivery Rate 03/03 0847 101.3 03/03 0634 99.4 71 18 112/66 97 Room Air 03/02 2223 98.4 62 20 102/60 96 Room Air 03/02 2004 98.3 03/02 2000 98.3 03/02 1905 100.9 03/02 1531 99.1 66 18 100/60 95 03/02 1200 99.7 Intake & Output 03/03 1600 03/03 0800 03/03 0000 Intake Total 500 600 Output Total Balance 500 600 Intake, IV 200 Intake, Oral 300 600 Physical Exam Other Physical Findings: She is awake and alert in no acute distress. MAXIMUM TEMPERATURE 101.3. Skin reveals no rash. HEENT exam is negative. Neck is supple with no adenopathy. Lungs are clear. Heart regular rhythm with no murmur. Abdomen is soft, nontender with positive bowel sounds. Back no CVA tenderness. Extremities induration along the medial aspect of the right leg from the knee to the thigh, tender to palpation with mild erythema. Neuro is without focality. Last 24 Hours of Lab Results: Laboratory Tests 03/03 03/02 0624 1945 Chemistry Sodium (137 - 145 mmol/L) 135 L Potassium (3.5 - 5.1 mmol/L) 4.1 Chloride (98 - 107 mmol/L) 96 L Carbon Dioxide (22 - 30 mmol/L) 28 Anion Gap (5 - 16) 11 BUN (7 - 17 mg/dL) 9 Creatinine (0.5 - 1.0 mg/dL) 0.6 Estimated GFR (>60 ml/min) > 60 BUN/Creatinine Ratio (7 - 25 %) 15.0 Hematology CBC w Diff NO MAN DIFF REQ WBC (4.8 - 10.8 /CUMM) 7.4 RBC (4.20 - 5.40 /CUMM) 3.90 L Hgb (12.0 - 16.0 G/DL) 11.9 L Hct (37 - 47 %) 35.0 L MCV (81.0 - 99.0 FL) 89.6 MCH (27.0 - 31.0 PG) 30.4 RDW (11.5 - 14.5 %) 12.8 Plt Count (130 - 400 /CUMM) 188 MPV (7.4 - 10.4 FL) 10.7 H Gran % (42.2 - 75.2 %) 62.8 Lymphocytes % (20.5 - 51.1 %) 19.3 L Monocytes % (1.7 - 9.3 %) 17.1 H Eosinophils % (0 - 5 %) 0.4 Basophils % (0.0 - 2.0 %) 0.4 Absolute Granulocytes (1.4 - 6.5 /CUMM) 4.7 Absolute Lymphocytes (1.2 - 3.4 /CUMM) 1.4 Absolute Monocytes (0.10 - 0.60 /CUMM) 1.3 H Absolute Eosinophils (0.0 - 0.7 /CUMM) 0 Absolute Basophils (0.0 - 0.2 /CUMM) 0 PUBS MCHC (33.0 - 37.0 G/DL) 33.9 Last 24 Hours of Juan Results: Blood cultures 2 March 01 negative Diagnostic Data Recent Imaging Findings: X-ray of the right ankle March 02 no fracture or dislocation; moderate medial malleolar soft tissue swelling with soft tissue swelling of the visualized medial aspect of the right leg Assessment/Plan Assessment/Plan Impression: This is a 50-year-old woman admitted on March 01 with increasing swelling, pain and erythema along the medial aspect of her right leg, despite empiric treatment with Clindamycin 2 days earlier for presumed cellulitis after a negative Doppler, found to be febrile with a normal white blood cell count, with persistent fevers and inflammation of the medial aspect of her right leg despite treatment with Unasyn. I am not convinced that she has a cellulitis, particularly with her normal white blood cell count, and suspect that her inflammation is secondary to a superficial thrombophlebitis of the saphenous vein. Her initial Doppler was negative, but as this could develop into a DVT, a repeat Doppler would be reasonable. There does not appear to be any suspicion for a collection within the thigh at this time. Suggestion: 1. Repeat Doppler of the right lower extremity 2. Vascular surgery evaluation 3. Symptomatic treatment for a superficial thrombophlebitis pending above 4. Can continue Unasyn 1.5 g IV every 6 hours pending above Consult Acknowledgment - Thank you for your consult request.
[2016-03-03 15:34] VITALS: BP 100/60
--- NOTE | 2016-03-03 15:36 | ULTRASOUND REPORT ---
EXAMINATION: US DUPLEX EXTREMITY VEINS, RIGHT CLINICAL INFORMATION: Right thigh swelling. COMPARISON: Lower extremity ultrasound from 02/27/2015 TECHNIQUE: Color-flow triplex imaging with spectral analysis and compression Doppler were performed on the right lower extremity. FINDINGS: The right common femoral vein is compressible and exhibits a normal phasic waveform; this suggests that the iliac veins are widely patent above. Within the proximal thigh, the visualized profunda femoris vein is patent and the examined greater saphenous vein and saphenofemoral junction are normal. Superficial femoral vein is patent in the proximal, mid and distal thigh. Popliteal vein appears normal to the level of the trifurcation, and the visualized deep calf veins are unremarkable. There is subcutaneous tissue edema within the calf. No evidence of Mccord's cyst. The nuclear medicine pet ct technologist identified a thrombosed, noncompressible, superficial vein within the calf. Within the right groin, the largest lymph node is 1 cm short axis dimension and it has a normal fatty hilum and has a normal long-and short axis measurement ratio of > 2. IMPRESSION: 1. No evidence of deep vein thrombosis in the right lower extremity. 2. There is a thrombosed superficial vein within the right calf. 3. Subcutaneous tissue edema is present within the calf.
[2016-03-03 22:39] VITALS: BP 100/60
[2016-03-04 05:39] VITALS: BP 112/50
--- NOTE | 2016-03-04 06:24 | PN- Housestaff ---
JEAN SKELTON,CARINE 03/04/16 0624: Subjective Follow-up For: cellulitis Subjective: I followed up and examined the patient today. She is in mild distress due to pain on her right lower extremity. Her redness has increased more towards her right inner thigh. Last time she spiked her temperature 101.3 was yesterday morning at 8 AM. She has been afebrile since then, but is requiring more pain medication. Her right ankle swelling has not changed since Friday. Review of Systems Constitutional: Reports: no symptoms. EENTM: Reports: no symptoms. Cardiovascular: Reports: no symptoms. Respiratory: Reports: no symptoms. Gastrointestinal: Reports: no symptoms. Genitourinary: Reports: no symptoms. Musculoskeletal: Reports: see HPI. Skin: Reports: see HPI, erythema (right lower extremity). Neurological/Psychological: Reports: no symptoms. Hematologic/Endocrine: Reports: no symptoms. Objective Last 24 Hrs of Vital Signs/I&O Vital Signs Date Time Temp Pulse Resp B/P Pulse O2 O2 Flow FiO2 Ox Delivery Rate 03/04 0539 97.9 59 20 112/50 94 Room Air 03/03 2239 97.8 60 19 100/60 94 Room Air 03/03 1534 98.3 62 18 100/60 96 03/03 0847 101.3 Intake & Output 03/04 0800 03/04 0000 03/03 1600 Intake Total 540 1320 600 Output Total 500 Balance 540 1320 100 Intake, IV 300 120 Intake, Oral 240 1200 600 Output, Urine 500 Physical Exam General Appearance: Alert, Oriented X3, Cooperative, Mild Distress Other Physical Findings: Physical Exam General Appearance Alert, Oriented X3, Cooperative, in mild distress due to pain Skin No Breakdown; redness, swelling and pain over her right leg has decreased significantly, but redness, pain has increased over her right medial thigh region. There are area of new induration of 5 x 5 cm2 over the lower part of right thigh in the medial side. The other one is 10 x 5 cm2 slightly above the first induration. Of note, these induration have developed over the weekend. HEENT Atraumatic, PERRLA, EOMI, Mucous Membr. moist/pink Neck Supple, No JVD Lymphatic Cervical nl Cardiovascular Regular Rate, Normal S1, Normal S2, No Murmurs Lungs Clear to Auscultation, Normal Air Movement Abdomen Normal Bowel Sounds, Soft, No Tenderness Neurological grossly intact Extremities No Clubbing, No Cyanosis, Normal Pulses, See above in skin finding, edema, redness, tenderness present over right leg Vascular Normal Pulses, Pulses Symmetrical Current Medications: Current Medications Sig/Allie Start time Last Medication Dose Route Stop Time Status Admin Acetaminophen 650 MG .STK-MED ONE 03/03 0845 DC PO 03/03 0846 Acetaminophen 650 MG Q4P PRN 03/02 1215 AC 03/03 PO 0847 Alprazolam 0.5 MG ONCE ONE 03/04 0445 DC 03/04 PO 03/04 0446 0447 Ampicillin Sodium/ 1,500 MG Q6 03/01 2359 AC 03/04 Sulbactam Sodium IV 0615 Sodium Chloride 100 ML Bisacodyl 5 MG DAILY 03/03 1000 AC 03/03 PO 1126 Heparin Sodium 5,000 UNIT Q8 03/01 1744 AC 03/04 (Porcine) SC 0614 Hydromorphone HCl 2 MG Q5 PRN 03/03 1000 AC 03/04 IV 0011 Hydromorphone HCl 1 MG Q4P PRN 03/02 1500 DC 03/03 IV 0840 Ibuprofen 400 MG Q6P PRN 03/03 1815 AC 03/03 PO 1824 Melatonin 5 MG AT BEDTIME 03/02 2200 AC 03/03 PO 2202 Nicotine 14 MG DAILY 03/01 1743 AC 03/03 TOP 1129 Omeprazole 20 MG DAILY AC 03/01 1743 AC 03/04 PO 0615 Oxycodone HCl 15 MG Q4P PRN 03/03 1000 AC 03/04 PO 0311 Oxycodone HCl 50 MG BID 03/01 2200 AC 03/03 PO 2202 Vancomycin HCl 1,000 MG ONCE ONE 03/03 1045 CAN Dextrose/Water 250 ML IV 03/03 1144 Last 24 Hrs of Lab/Juan Results Last 24 Hrs of Labs/Mics: Laboratory Tests 03/04/16 0659: Anion Gap 3 L, Estimated GFR > 60, BUN/Creatinine Ratio 11.7, CBC w Diff NO MAN DIFF REQ, RBC 3.74 L, MCV 90.9, MCH 30.2, RDW 12.6, MPV 10.3, Gran % 59.8, Lymphocytes % 22.2, Monocytes % 16.8 H, Eosinophils % 0.8, Basophils % 0.4, Absolute Granulocytes 3.9, Absolute Lymphocytes 1.4, Absolute Monocytes 1.1 H, Absolute Eosinophils 0.1, Absolute Basophils 0, PUBS MCHC 33.2 03/04/16 0600: Hemoglobin A1c Pending 03/03/16 1450: Urine Color YEL, Urine Clarity CLEAR, Urine pH 6.5, Ur Specific Lucas <= 1.005 , Urine Protein NEG, Urine Ketones NEG, Urine Nitrite NEG, Urine Bilirubin NEG, Urine Urobilinogen 0.2, Ur Leukocyte Esterase NEG, Ur Microscopic EXAM NOT REQUIRED, Urine Hemoglobin NEG, Urine Glucose NEG Microbiology 03/03 1450 URINE ROUT: Urine Culture - RES 03/03 1221 BLOOD: Blood Culture - RECD 03/03 1220 BLOOD: Blood Culture - RECD Assessment/Plan Assessment: 50-year-old woman with self-reported hypertension not on medication, multiple surgeries in the past, is here for treatment of right leg cellulitis after failing outpt management. continues to spike fevers and complains of right upper thigh swelling. #Right lower extremity superficial thrombophlebitis Tmax 101.3 yesterday morning, not since then. There is no increase in white count. She still complains of right upper thigh swelling. There is a marked area of induration and increased redness on her medial side of right lower extremity. It gives an impression of superficial thrombophlebitis or thrombosed vessels. -Blood and urine culture has been negative -Continue with Unasyn 3mg q6. Today is day 4. -Continue warm compression, and NSAIDs -Follow up infectious disease and vascular surgery recommendation, podiatry recommendation for oncychomycosis -Pain meds modified per her usual home meds PLUS Dilaudid q3h -Bowel regimen started, as she is getting high amount of opiates -[facility] [place] has been called to postpone her appointment to a later date per patient's request, as she is still admitted here and her appointment would be tomorrow otherwise #GERD Continue omeprazole #Nicotine dependence Continue nicotine patch Regular diet DVT prophylaxis with heparin subcutaneous 3 times a day Full CODE STATUS Problem List: 1. Cellulitis 2. Superficial thrombophlebitis 3. GERD (gastroesophageal reflux disease) 4. Nicotine dependence Pain Ratin Pain Location: right thigh medial part Pain Goal: Pain 4 or less Pain Plan: Continued home medication of OxyContin 50 mg twice a day, oxycodone 15 mg every 6 hour, acetaminophen 650 MG every 4 hours, Motrin 800 mg every 6 hours, and finally Dilaudid 2 mg IV every 3 hours. Tomorrow's Labs & Rationales: cbc, bep, culture ONLY if she spikes fever WILLIAM GAITAN MD 03/04/16 1208: Attending Review Statement Attending Statement Attending MD Statement: examined this patient, discuss w/resident/PA/TERRAZZO MECHANIC HELPER, agreed w/resident/PA/TERRAZZO MECHANIC HELPER, reviewed EMR data (avail) Attending Assessment/Plan: 50F PMH diet-controlled HTN, gastric bypass 2008 admitted with RLE cellulitis failing outpatient therapy. Cellulitis extends from inner upper thigh to inner calf, with mild erythema, warmth, and diffuse tenderness. Reports constant pain along that area, with small area of weeping on posterior thigh. Denies fever, chills, but reports feeling ill. Started Clindamycin 3 days prior to admission and cellulitis has worsened since. No prior similar symptoms. Had a provoked DVT 20 years ago after childbirth. Induration worse in right leg today, as is tenderness. Afebrile overnight, erythema has not spread. LE doppler confirms superficial thrombophlebitis. Plan - Continue warm compresses and NSAIDs - Continue Unasyn (no evidence of allergy thus far, patient reports adverse reaction when she was an infant) - Follow blood cultures - Monitor borders of cellulitis - Follow ID recommendations - Right ankle x-ray shows only edema without fracture - Podiatry consult for onychomycosis - Continue Dilaudid PRN (patient is on chronic opioids and may require higher doses) - Bowel regimen to prevent constipation - Vascular surgery consult - DVT PPx
[2016-03-04 08:26] LABS: ABSOLUTE BASOPHIL COUNT 0 /CUMM (0.0-0.2); ABSOLUTE EOSINOPHIL COUNT 0.1 /CUMM (0.0-0.7); ABSOLUTE GRANULOCYTE CT 3.9 /CUMM (1.4-6.5); ABSOLUTE LYMPH COUNT 1.4 /CUMM (1.2-3.4); ABSOLUTE MONOCYTE COUNT 1.1 /CUMM (0.10-0.60); BASOPHIL % 0.4 % (0.0-2.0); EOSINOPHIL % 0.8 % (0-5); GRANULOCYTE % 59.8 % (42.2-75.2); MEAN CORPUSCULAR HGB 30.2 PG (27.0-31.0); MEAN CORPUSCULAR HGB CONC 33.2 G/DL (33.0-37.0); MEAN CORPUSCULAR VOLUME 90.9 FL (81.0-99.0); MEAN PLATELET VOLUME 10.3 FL (7.4-10.4); PLATELET COUNT 194 /CUMM (130-400); RBC DISTRIBUTION WIDTH 12.6 % (11.5-14.5); RED BLOOD CELL CT 3.74 /CUMM (4.20-5.40); WHITE BLOOD CELL COUNT 6.5 /CUMM (4.8-10.8)
--- NOTE | 2016-03-04 10:35 | PN- Student ---
Subjective Subjective: Source: Patient History of Present Illness: Follow-up for: R-leg Cellulitis I visited Ms. Klein this morning and she was sleeping comfortably. She mentioned right away that the pain has only been increasing since the day she was admitted to the hospital. Also, she has been noticing that now her medial thigh is been involved, which is something new. She mentioned that yesterday she had a fever and wonders if the antibiotics are working. When asked to rate the current pain that she had she mentioned to have a 5/10, 10 been the worst. The patient has no associated symptoms or new symptoms but is just concerned that the leg pain is getting worst even though she is in medications for pain. Patient denies any nausea, vomiting, anorexia, constipation, diarrhea, chills and night sweats. Functional Ability: ADLs Independent: dressing, eating, toileting, bathing. Ambulation: independent. IADLs Independent: shopping, housework, finances, food prep, telephone, transportation , medication admin. Review of Systems: General: Patient is in proper attire, alert and the are no signs of respiratory distress. She denies any weigt loss, night sweats, chills and fever. HEENT: NONE Cardiovascular: NONE Respiratory: NONE GI: NONE Endocrine: FHx of DM. Genitourinary: NONE Skin: No changes. Upper Limbs: NONE Lower Limbs: Refer to HPI. MSK: NONE Objective Objective: Current Medications Sig/Allie Start time Last Medication Dose Route Stop Time Status Admin Acetaminophen 650 MG Q4P PRN 03/02 1215 AC 03/03 PO 0847 Alprazolam 0.5 MG ONCE ONE 03/04 0445 DC 03/04 PO 03/04 0446 0447 Ampicillin Sodium/ 1,500 MG Q6 03/01 2359 AC 03/04 Sulbactam Sodium IV 0615 Sodium Chloride 100 ML Bisacodyl 5 MG DAILY 03/03 1000 AC 03/04 PO 0959 Heparin Sodium 5,000 UNIT Q8 03/01 1744 AC 03/04 (Porcine) SC 0614 Hydromorphone HCl 2 MG Q3P PRN 03/04 1030 AC IV Hydromorphone HCl 2 MG Q5 PRN 03/03 1000 DC 03/04 IV 0903 Ibuprofen 800 MG Q8P PRN 03/04 0915 AC PO Ibuprofen 400 MG Q6P PRN 03/03 1815 DC 03/03 PO 1824 Melatonin 5 MG AT BEDTIME 03/02 2199 AC 03/03 PO 2202 Nicotine 14 MG DAILY 03/01 174 03/04 TOP 0959 Omeprazole 20 MG DAILY AC 03/01 174 AC 03/04 PO 0615 Oxycodone HCl 15 MG Q6PRN PRN 03/04 1030 AC 03/04 PO 1112 Oxycodone HCl 15 MG Q4P PRN 03/03 1000 DC 03/04 PO 0311 Oxycodone HCl 50 MG BID 03/01 2199 AC 03/04 PO 1004 Vital Signs Date Time Temp Pulse Resp B/P Pulse O2 O2 Flow FiO2 Ox Delivery Rate 03/04 0539 97.9 59 20 112/50 94 Room Air 03/03 2239 97.8 60 19 100/60 94 Room Air 03/03 1534 98.3 62 18 100/60 96 Intake & Output 03/04 1600 03/04 0800 03/04 0000 Intake Total 540 1320 Output Total Balance 540 1320 Intake, IV 300 120 Intake, Oral 240 1200 Physical Examination: General: 50 y/o F without any respiratory distress, vomiting, diarrhea, weight loss, chills and night sweats. Mild fever yesterday. MSK Lower Extremities: On inspection the R-leg has mild rubor and edema is noted from the proximal thigh up to the ankle. Upon palpation there was tenderness especially in the area of induration (located on the R-medial thigh). The edematous areas were warm on touch when compared to the L leg. Neurological: Normal Speech. Results Results: Laboratory Tests 03/04/16 0659: Anion Gap 3 L, Estimated GFR > 60, BUN/Creatinine Ratio 11.7, CBC w Diff NO MAN DIFF REQ, RBC 3.74 L, MCV 90.9, MCH 30.2, RDW 12.6, MPV 10.3, Gran % 59.8, Lymphocytes % 22.2, Monocytes % 16.8 H, Eosinophils % 0.8, Basophils % 0.4, Absolute Granulocytes 3.9, Absolute Lymphocytes 1.4, Absolute Monocytes 1.1 H, Absolute Eosinophils 0.1, Absolute Basophils 0, PUBS MCHC 33.2 03/04/16 0600: Hemoglobin A1c Pending 03/03/16 1450: Urine Color YEL, Urine Clarity CLEAR, Urine pH 6.5, Ur Specific [place] <= 1.005 , Urine Protein NEG, Urine Ketones NEG, Urine Nitrite NEG, Urine Bilirubin NEG, Urine Urobilinogen 0.2, Ur Leukocyte Esterase NEG, Ur Microscopic EXAM NOT REQUIRED, Urine Hemoglobin NEG, Urine Glucose NEG 03/03/16 0624: CBC w Diff NO MAN DIFF REQ, RBC 3.90 L, MCV 89.6, MCH 30.4, RDW 12.8, MPV 10.7 H, Gran % 62.8, Lymphocytes % 19.3 L, Monocytes % 17.1 H, Eosinophils % 0.4, Basophils % 0.4, Absolute Granulocytes 4.7, Absolute Lymphocytes 1.4, Absolute Monocytes 1.3 H, Absolute Eosinophils 0, Absolute Basophils 0, PUBS MCHC 33.9 03/02/16 1945: Anion Gap 11, Estimated GFR > 60, BUN/Creatinine Ratio 15.0 03/02/16 0550: CBC w Diff NO MAN DIFF REQ, RBC 3.94 L, MCV 89.9, MCH 30.3, RDW 13.1, MPV 10.6 H, Gran % 57.3, Lymphocytes % 25.5, Monocytes % 16.0 H, Eosinophils % 0.8, Basophils % 0.4, Absolute Granulocytes 3.6, Absolute Lymphocytes 1.6, Absolute Monocytes 1.0 H, Absolute Eosinophils 0, Absolute Basophils 0, PUBS MCHC 33.7 03/01/16 1808: Lactic Acid Cancelled 03/01/16 1528: Lactic Acid 0.8 03/01/16 1528: Anion Gap 11, Estimated GFR > 60, BUN/Creatinine Ratio 14.3, Glucose 96, Calcium 9.1, Total Bilirubin 0.6, AST 17, ALT 39, Alkaline Phosphatase 97, Total Protein 6.2 L, Albumin 3.5, Globulin 2.7, Albumin/Globulin Ratio 1.3, CBC w Diff NO MAN DIFF REQ, RBC 4.38, MCV 89.6, MCH 30.2, RDW 12.8, MPV 9.5, Gran % 65.2, Lymphocytes % 18.7 L, Monocytes % 15.0 H, Eosinophils % 0.5, Basophils % 0.6, Absolute Granulocytes 5.8, Absolute Lymphocytes 1.7, Absolute Monocytes 1.3 H, Absolute Eosinophils 0, Absolute Basophils 0.1, PUBS MCHC 33.8 Microbiology 03/03 1450 URINE ROUT: Urine Culture - RES 03/03 1221 BLOOD: Blood Culture - RECD 03/03 1220 BLOOD: Blood Culture - RECD 03/01 1547 BLOOD: Blood Culture - RES 03/01 1528 BLOOD: Blood Culture - RES Assessment/Plan Assessment: Ms. Klein is a 50 y/o F that came in to the hospital due to a painful cellulitis located in the R leg. The patient's leg inflammation area was marked with a surgical pen to assess the progresion of the cellulitis. #1) While visiting the patient today the patient mentioned that she has not been sleeping well and that yesterday she had a high fever. #2) The pain on the R-leg has been progressive and now the induration that was present on the anterior aspect of the leg now can be appreicated and palpated on the R-medial thigh. #3) Everytime the patient stands up she feels throbbing pain; it was explained to the patient that the disease is been progressing since it involves the whole vein, therefore the inflammation is progressing upwards. Plan: #1) Continue monitoring the vital signs specially the temperature and proceed with Melatonin administration to improve the sleeping quality of the patient at nights. #2) Follow up with Vascular Surgeon to assess the extent of the phlebitis that the patient has. Continue the patient on antibiotics as prescribed. #3) Increase the bedside physical activity of the patient to promote slight compresion on the affected areas.
--- NOTE | 2016-03-04 10:53 | Patient Discharge Instructions ---
Discharge Instructions General Discharge Information You were seen/treated for: Superficial thrombophlebitis of right lower extremity Special Instructions: Please follow up with your primary care physician within 7-10 days of discharge. Please follow up with your vascular surgeon within one week of discharge. Please return to emergency if symptoms worsen. Please use warm compress on the right leg, and keep the leg elevated. Diet Continue normal diet: Yes Recommended Diet: Heart Healthy Activity Full Activity/No Limits: No Activity Self Limited: Yes Acute Coronary Syndrome Inclusion Criteria At DC or during hospital stay patient has or had the following: ACS DIAGNOSIS No Discharge Core Measures Meds if any: Prescribed or Continued at Discharge Meds if any: NOT Prescribed or Continued at Discharge Congestive Heart Failure Inclusion Criteria At DC or during hospital stay patient has or had the following: CHF DIAGNOSIS No Discharge Core Measures Meds if any: Prescribed or Continued at Discharge Meds if any: NOT Prescribed or Continued at Discharge Cerebrovascular accident Inclusion Criteria At DC or during hospital stay patient has or had the following: CVA/TIA Diagnosis No Discharge Core Measures Meds if any: Prescribed or Continued at Discharge Meds if any: NOT Prescribed or Continued at Discharge Venous thromboembolism Inclusion Criteria VTE Diagnosis No VTE Type NONE VTE Confirmed by (Test) NONE Discharge Core Measures - Per Current guidelines, there needs to be overlap - treatment for the first 5 days of Warfarin therapy. - If discharged on Warfarin prior to 5 days of - overlap therapy, the patient will need to be - assessed for post discharge needs including - *Post discharge parental anticoagulation - *Warfarin and/or parental anticoagulation education - *Follow up date to check INR post discharge At least 5 days overlap therapy as Inpatient No Meds if any: Prescribed or Continued at Discharge Note: Overlap Therapy is Warfarin and Anticoagulant Meds if any: NOT Prescribed or Continued at Discharge
--- NOTE | 2016-03-04 12:54 | PN- Infect Dx ---
Subjective Subjective: Afebrile for the past 24 hours. She continues to complain of pain in the medial aspect of her right thigh. Objective Last 24 Hrs of Vital Signs/I&O Vital Signs Date Time Temp Pulse Resp B/P Pulse O2 O2 Flow FiO2 Ox Delivery Rate 03/04 0539 97.9 59 20 112/50 94 Room Air 03/03 2239 97.8 60 19 100/60 94 Room Air 03/03 1534 98.3 62 18 100/60 96 Intake & Output 03/04 1600 03/04 0800 03/04 0000 Intake Total 540 1320 Output Total Balance 540 1320 Intake, IV 300 120 Intake, Oral 240 1200 Physical Exam Other Physical Findings: She appears comfortable presently in no acute distress Extremities right medial thigh induration, particularly pronounced upon standing , quite tender to palpation, with minimal erythema Results Last 24 Hours of Lab Results: Laboratory Tests 03/04 03/04 0659 0600 Chemistry Sodium (137 - 145 mmol/L) 136 L Potassium (3.5 - 5.1 mmol/L) 4.1 Chloride (98 - 107 mmol/L) 103 Carbon Dioxide (22 - 30 mmol/L) 31 H Anion Gap (5 - 16) 3 L BUN (7 - 17 mg/dL) 7 Creatinine (0.5 - 1.0 mg/dL) 0.6 Estimated GFR (>60 ml/min) > 60 BUN/Creatinine Ratio (7 - 25 %) 11.7 Hemoglobin A1c Pending Hematology CBC w Diff NO MAN DIFF REQ WBC (4.8 - 10.8 /CUMM) 6.5 RBC (4.20 - 5.40 /CUMM) 3.74 L Hgb (12.0 - 16.0 G/DL) 11.3 L Hct (37 - 47 %) 34.0 L MCV (81.0 - 99.0 FL) 90.9 MCH (27.0 - 31.0 PG) 30.2 RDW (11.5 - 14.5 %) 12.6 Plt Count (130 - 400 /CUMM) 194 MPV (7.4 - 10.4 FL) 10.3 Gran % (42.2 - 75.2 %) 59.8 Lymphocytes % (20.5 - 51.1 %) 22.2 Monocytes % (1.7 - 9.3 %) 16.8 H Eosinophils % (0 - 5 %) 0.8 Basophils % (0.0 - 2.0 %) 0.4 Absolute Granulocytes (1.4 - 6.5 /CUMM) 3.9 Absolute Lymphocytes (1.2 - 3.4 /CUMM) 1.4 Absolute Monocytes (0.10 - 0.60 /CUMM) 1.1 H Absolute Eosinophils (0.0 - 0.7 /CUMM) 0.1 Absolute Basophils (0.0 - 0.2 /CUMM) 0 PUBS MCHC (33.0 - 37.0 G/DL) 33.2 03/03 1450 Urines Urine Color (YEL,AMB,STR) YEL Urine Clarity (CLEAR) CLEAR Urine pH (5.0 - 8.0) 6.5 Ur Specific [place] (1.001 - 1.035) <= 1.005 Urine Protein (NEG,<30 MG/DL) NEG Urine Ketones (NEG) NEG Urine Nitrite (NEG) NEG Urine Bilirubin (NEG) NEG Urine Urobilinogen (0.1 - 1.0 EU/dl) 0.2 Ur Leukocyte Esterase (NEG) NEG Ur Microscopic EXAM NOT REQUIRED Urine Hemoglobin (NEG) NEG Urine Glucose (N MG/DL) NEG Last 24 Hours of Juan Results: Blood cultures March 01 negative Blood cultures March 03 negative Urine culture March 03 negative Recent Imaging Studies: Doppler of the right lower extremity March 03 revealed a thrombosed superficial vein within the right calf; no evidence of DVT Assessment/Plan Impression: Inflammation along the medial aspect of her right leg most suggestive of a superficial thrombophlebitis, with the recent ultrasound confirming the presence of a thrombosed superficial vein within the right calf, with no evidence of a DVT. Her white blood cell count has been normal since admission, which is more suggestive of a noninfectious process, and, with little evidence for a cellulitis, the Unasyn should be able to be discontinued. Suggestion: 1. Vascular surgery evaluation 2. Continue symptomatic treatment for a superficial thrombophlebitis 3. Discontinue Unasyn and follow off antibiotics
[2016-03-04 14:13] VITALS: BP 108/80
--- NOTE | 2016-03-04 15:52 | Cons- Vascular Surgery ---
General Information and HPI Consulting Request Date of Consult: 03/04/16 Requested By: WILLIAM GAITAN MD Reason for Consult: PHLEBITIS Source of Information: patient Exam Limitations: no limitations History of Present Illness: Patient is a 50 year old female with a past medical history significant for morbid obesity s/p laparoscopic gastric bypass surgery in 2008, s/p provoked dvt after emergency in 1989, hx vein stripping to right leg, s/p mitral valve repair at 14 months of age admitted on 03/01/16 with increased pain and redness to her right lower extremity. She was seen in the emergency room two days prior to admission with similar complaints, given Clindamycin PO for cellulitis, and was discharged. She returned to the ED on 03/01/16 with worsening pain and swelling, up to her thigh. She was admitted and started on IV Unasyn. Two days after admission, a DVT study was performed, negative for a deep vein thrombosis, but was positive for a thrombosed superficial vein. Vascular surgery called for consultation. Denies C, CP/SOB, N/V. Has had fevers while in hospital, tmax 101F. Allergies/Medications Allergies: Coded Allergies: Penicillins (UNKNOWN 07/24/15) vancomycin (UNKNOWN 07/24/15) Home Med List: DIPHENHYDRAMINE HCL (Benadryl Allergy) 25 MG TABLET 1-2 TAB PO Q6P PRN allergy Hydrocodone Bitartrate (Zohydro ER) 50 MG CAP.ER.12H 1 CAP PO BID PAIN ( Reported) Omeprazole 40 MG CAPSULE.DR 1 CAP PO DAILY GI (Reported) Oxycodone HCl 15 MG TABLET 1 TAB PO 4 TIMES/DAY PAIN (Reported) Sertraline HCl 100 MG TABLET 1 TAB PO DAILY MENTAL HEALTH (Reported) Triamterene/Hydrochlorothiazid (Triamterene-Hctz 37.5-25 MG Tb) 1 EACH TABLET 1 TAB PO DAILY HEART (Reported) Past History Medical History Blood Transfusion Hx: No Respiratory: asthma Gastrointestinal: GASTRIC BYPASS Musculoskeletal: CHRONIC HIP PAIN Surgical History Pertinent Surgical History: hysterectomy, GASTRIC BYPASS 2009 status post mitral valve surgery 14 months of age Psychosocial History Where Do You Live? Home Primary Language: Pashto Smoking Status: Heavy Tobacco Smoker ETOH Use: denies use Illicit Drug Use: denies illicit drug use Functional Ability ADLs Independent: dressing, eating, toileting, bathing. Ambulation: independent IADLs Independent: shopping, housework, finances, food prep, telephone, transportation , medication admin. Review of Systems Review of Systems: see HPI Exam & Diagnostic Data Vital Signs and I&O Vital Signs Date Time Temp Pulse Resp B/P Pulse O2 O2 Flow FiO2 Ox Delivery Rate 03/04 1413 98.9 65 20 108/80 94 Room Air 03/04 0539 97.9 59 20 112/50 94 Room Air 03/03 2239 97.8 60 19 100/60 94 Room Air Intake & Output 03/04 1600 03/04 0800 03/04 0000 03/03 1600 03/03 0800 03/03 0000 Intake Total 540 1320 600 500 600 Output Total 500 Balance 540 1320 100 500 600 Intake, IV 300 120 200 Intake, Oral 240 1200 600 300 600 Output, Urine 500 Physical Exam: Gen: AAOx3 in NAD Cor: S1+S2+ Lungs: CTA azam Abd: soft, NT, ND, +BS x4 Ext: right lower extremity examined. Palpable DP pulse. Foot cool. Right medial thigh erythematous, tender to light palpation. No fluctuance noted. Thigh/calf compartments soft. No calf tenderness or edema noted. Motor/ sensation grossly intact. Imaging Results: EXAMINATION: US DUPLEX EXTREMITY VEINS, RIGHT CLINICAL INFORMATION: Right thigh swelling. COMPARISON: Lower extremity ultrasound from 02/27/2015 TECHNIQUE: Color-flow triplex imaging with spectral analysis and compression Doppler were performed on the right lower extremity. FINDINGS: The right common femoral vein is compressible and exhibits a normal phasic waveform; this suggests that the iliac veins are widely patent above. Within the proximal thigh, the visualized profunda femoris vein is patent and the examined greater saphenous vein and saphenofemoral junction are normal. Superficial femoral vein is patent in the proximal, mid and distal thigh. Popliteal vein appears normal to the level of the trifurcation, and the visualized deep calf veins are unremarkable. There is subcutaneous tissue edema within the calf. No evidence of Mccord's cyst. The radiology technologist identified a thrombosed, noncompressible, superficial vein within the calf. Within the right groin, the largest lymph node is 1 cm short axis dimension and it has a normal fatty hilum and has a normal long-and short axis measurement ratio of > 2. IMPRESSION: 1. No evidence of deep vein thrombosis in the right lower extremity. 2. There is a thrombosed superficial vein within the right calf. 3. Subcutaneous tissue edema is present within the calf. DICTATED BY: NATHEN BIRCH MD DATE/TIME DICTATED:03/03/161526 BOX CLOSING MACHINE OPERATOR:ELI DATE/TIME TRANSCRIBED:03/03/161526 CONFIDENTIAL, DO NOT COPY WITHOUT APPROPRIATE AUTHORIZATION. <Electronically signed in Other Vendor System> Assessment/Plan Assessment/Plan A: 50 year old female HD #3 with superficial vein thrombus with associated right lower extremity cellulitis. AVSS on IV Unasyn. Plan: Would continue IV antibiotics. Elevate right lower extremity above level of heart with at least 3 pillows. Warm compresses to right medial thigh. Dr. Garcia to evaluate tomorrow. Kerlex/talita wrap placed to right lower extremity. Please have nursing change daily to maintain compression. ASA 325 mg daily ordered. Consult Acknowledgment - Thank you for your consult request.
[2016-03-04 22:08] VITALS: BP 104/60
--- NOTE | 2016-03-04 22:23 | PN- Vascular Surgery ---
Surgical Brief Attending Note Brief Attending Note: VASCULAR ATTENDING NOTE: Patient seen and examined. Agree with PA note from earlier today. Briefly 50- year-old female with a history of right thigh pain over the past week. This had been increasing in severity and duration. Recent ultrasound demonstrates phlebitis in the right lower extremity. However she has also had fever and significant thigh pain. She denies any claudication or rest pain. The patient was only started on aspirin and warm compress today. Physical exam reveals she is afebrile vital signs stable at this time. However she did have fever earlier in the day. Extremity exam reveals a tender right thigh and lower extremity consistent with phlebitis with superimposed cellulitis. Erythema extends outside the area of the vein. There is a cluster of varicosities in the lower leg which are thrombosed. Patient has also had a vein stripping in the leg. Venous ultrasound was reviewed. This demonstrates no evidence of DVT. A/P 50-year-old female with phlebitis and superimposed cellulitis 1.) Would continue antibiotics as patient has streaking erythema and fever which is not consistent with only phlebitis-this is consistent with cellulitis 2.) Recommend continue aspirin and warm compresses 3 times a day 3.) Continue lower extremity elevation-may hold compression as this is causing patient significant discomfort 4.) Continue care as per medicine
--- NOTE | 2016-03-05 05:43 | PN- Housestaff ---
ARNOLD MUSA 03/05/16 0543: Subjective Follow-up For: Superficial thrombophlebitis Subjective: Patient was comfortably lying in her bed this morning. Still complains of left lower extremity pain in 7-09/26 in severity, with no radiation. Decrease in erythema, as compared to yesterday as per the team. No discharge. Review of Systems Constitutional: Reports: see HPI. Objective Last 24 Hrs of Vital Signs/I&O Vital Signs Date Time Temp Pulse Resp B/P Pulse O2 O2 Flow FiO2 Ox Delivery Rate 03/04 2208 97.7 66 20 104/60 96 03/04 1413 98.9 65 20 108/80 94 Room Air Intake & Output 03/05 0800 03/05 0000 03/04 1600 Intake Total 200 1000 Output Total Balance 200 1000 Intake, IV 100 Intake, Oral 200 900 Physical Exam General Appearance: Mild Distress Other Physical Findings: General Exam: AAOx3, No acute distress Skin: No rashes, several indurated chandrika on the right lower extremity. No erythema. Tenderness all over the right lower extremity. HEENT: PERRLA, EOMI Neck: Supple, No JVD No cervical lymphadenopathy CVS: Reg Rate, Normal S1,S2, No MGR Resp: Normal air entry, no ronchi/rales Abdomen: Soft, No tenderness, Normal Bowel Sounds Neuro: Normal Speech, Strength 5/5 b/l x 4 extremities, Sensation intact, CN III -XII NL, Reflexes 2+ Extremities: No cyanosis, no pedal edema. Current Medications: Current Medications Sig/Allie Start time Last Medication Dose Route Stop Time Status Admin Acetaminophen 650 MG Q4P PRN 03/02 1215 AC 03/03 PO 0847 Alprazolam 0.5 MG ONCE ONE 03/04 1900 DC 03/04 PO 03/04 1902015 Ampicillin Sodium/ 1,500 MG Q6 03/01 2359 DC 03/04 Sulbactam Sodium IV 1436 Sodium Chloride 100 ML Aspirin 325 MG DAILY 03/04 1615 AC 03/04 PO 1801 Bisacodyl 5 MG DAILY 03/03 1000 AC 03/04 PO 0959 Heparin Sodium 5,000 UNIT Q8 03/01 1744 AC 03/04 (Porcine) SC 2147 Hydromorphone HCl 2 MG Q3P PRN 03/04 1030 03/05 IV 0012 Hydromorphone HCl 2 MG Q5 PRN 03/03 1000 DC 03/04 IV 0903 Ibuprofen 800 MG Q8P PRN 03/04 0915 AC 03/04 PO 1415 Ibuprofen 400 MG Q6P PRN 03/03 1815 DC 03/03 PO 1824 Melatonin 5 MG AT BEDTIME 03/02 2200 03/04 PO 2147 Nicotine 14 MG DAILY 03/01 1743 03/04 TOP 0959 Omeprazole 20 MG DAILY AC 03/01 174 AC 03/04 PO 0615 Oxycodone HCl 15 MG Q6PRN PRN 03/04 1030 AC 03/04 PO 2016 Oxycodone HCl 15 MG Q4P PRN 03/03 1000 DC 03/04 PO 0311 Oxycodone HCl 50 MG BID 03/01 2199 AC 03/04 PO 2147 Senna/Docusate Sodium 1 TAB BID PRN 03/04 1415 AC PO Last 24 Hrs of Lab/Juan Results Last 24 Hrs of Labs/Mics: Laboratory Tests 03/04/16 0659: Anion Gap 3 L, Estimated GFR > 60, BUN/Creatinine Ratio 11.7, CBC w Diff NO MAN DIFF REQ, RBC 3.74 L, MCV 90.9, MCH 30.2, RDW 12.6, MPV 10.3, Gran % 59.8, Lymphocytes % 22.2, Monocytes % 16.8 H, Eosinophils % 0.8, Basophils % 0.4, Absolute Granulocytes 3.9, Absolute Lymphocytes 1.4, Absolute Monocytes 1.1 H, Absolute Eosinophils 0.1, Absolute Basophils 0, PUBS MCHC 33.2 03/04/16 0600: Hemoglobin A1c 5.3 Assessment/Plan Assessment: 50-year-old woman with self-reported hypertension not on medication, multiple surgeries in the past, is here for treatment of right leg cellulitis after failing outpt management. continues to spike fevers and complains of right upper thigh swelling. #Right lower extremity superficial thrombophlebitis Afebrile. Leucocytosis trending down 18.9-->16. -Blood and urine culture has been negative -Watch off abx, as per ID recommedation. -Continue warm compression, and NSAIDs -Increase in oxycontin 50-->70 mg bid. Continue dilaudid intravenously for now. -Bowel regimen started, as she is getting high amount of opiates #GERD Continue omeprazole #Nicotine dependence Continue nicotine patch Regular diet DVT prophylaxis with heparin subcutaneous 3 times a day Full CODE STATUS Problem List: 1. Superficial thrombophlebitis 2. Nicotine dependence Pain Ratin Pain Location: right lower extremity Pain Goal: Pain 4 or less Pain Plan: dilaudid oxycontin oxycodone ibubrufen Tomorrow's Labs & Rationales: cbc- to monitor for leucocytosis WILLIAM GAITAN MD 03/05/16 1108: Attending MD Review Statement Attending Statement Attending MD Statement: examined this patient, discuss w/resident/PA/ELEVATOR ADJUSTER, agreed w/resident/PA/ELEVATOR ADJUSTER, reviewed EMR data (avail) Attending Assessment/Plan: 50F PMH diet-controlled HTN, gastric bypass 2008 admitted with RLE cellulitis failing outpatient therapy. Cellulitis extends from inner upper thigh to inner calf, with mild erythema, warmth, and diffuse tenderness. Reports constant pain along that area, with small area of weeping on posterior thigh. Denies fever, chills, but reports feeling ill. Started Clindamycin 3 days prior to admission and cellulitis has worsened since. No prior similar symptoms. Had a provoked DVT 20 years ago after childbirth. Induration is unchanged, but swelling and erythema are improved. Afebrile >48 hours. Pain is still uncontrolled. 1. Superficial thrombophlebitis of right extremity 2. Cellulitis of right extremity 3. Leg pain Plan - Continue warm compresses and NSAIDs - Continue Unasyn (no evidence of allergy thus far, patient reports adverse reaction when she was an infant) - Follow blood cultures - Monitor borders of cellulitis - Follow ID and vascular recommendations - Right ankle x-ray shows only edema without fracture - Increase long acting oxycodone dose to 70mg BID - Continue PRN Dilaudid - Bowel regimen to prevent constipation - DVT PPx
[2016-03-05 06:15] VITALS: BP 120/70
--- NOTE | 2016-03-05 07:40 | PN- Student ---
Subjective Subjective: Source: Patient History of Present Illness: Follow-up for: R-leg Cellulitis I visited Ms. Klein this morning and she was sitting on her bed without any noticeable signs of distress. Her first complaint was regarding the pain level, which she mentioned to be increasing since she was admitted to the hospital. Yesterday she had to take Alprazolam in order to be able to go to sleep and even though that she was awaken a few times during the night due to pain. She also mentioned that she feels like the cellulitis is moving upwards and fears that it will keep coming up and above her torso. She was educated regarding her current diagnosis and she agreed that she understood the explanation. Patient denies any nausea, vomiting, anorexia, constipation, diarrhea, fever, chills and night sweats. Functional Ability: ADLs Independent: dressing, eating, toileting, bathing. Ambulation: independent. IADLs Independent: shopping, housework, finances, food prep, telephone, transportation , medication admin. Review of Systems: General: Patient is in proper attire, alert and the are no signs of respiratory distress. She denies any weigt loss, night sweats, chills and fever. HEENT: NONE Cardiovascular: NONE Respiratory: NONE GI: NONE Endocrine: FHx of DM. Genitourinary: NONE Skin: No changes. Upper Limbs: NONE Lower Limbs: Refer to HPI. MSK: NONE Objective Objective: Current Medications Sig/Allie Start time Last Medication Dose Route Stop Time Status Admin Acetaminophen 650 MG Q4P PRN 03/02 1215 AC 03/03 PO 0847 Alprazolam 0.5 MG ONCE ONE 03/04 1900 DC 03/04 PO 03/04 1902015 Ampicillin Sodium/ 1,500 MG Q6 03/01 2359 DC 03/04 Sulbactam Sodium IV 1436 Sodium Chloride 100 ML Aspirin 325 MG DAILY 03/04 1615 AC 03/04 PO 1801 Bisacodyl 5 MG DAILY 03/03 1000 AC 03/04 PO 0959 Heparin Sodium 5,000 UNIT Q8 03/01 1744 AC 03/05 (Porcine) SC 0600 Hydromorphone HCl 2 MG Q3P PRN 03/04 1030 AC 03/05 IV 0600 Hydromorphone HCl 2 MG Q5 PRN 03/03 1000 DC 01/16 IV 0903 Ibuprofen 800 MG Q8P PRN 03/04 0915 AC 03/04 PO 1415 Ibuprofen 400 MG Q6P PRN 03/03 1815 DC 03/03 PO 1824 Melatonin 5 MG AT BEDTIME 03/02 2199 AC 03/04 PO 2147 Nicotine 14 MG DAILY 03/01 1743 AC 03/04 TOP 0959 Omeprazole 20 MG DAILY AC 03/01 1743 AC 03/05 PO 0559 Oxycodone HCl 15 MG Q6PRN PRN 03/04 1030 AC 03/04 PO 2016 Oxycodone HCl 15 MG Q4P PRN 03/03 1000 DC 03/04 PO 0311 Oxycodone HCl 50 MG BID 03/01 2199 AC 03/04 PO 2147 Senna/Docusate Sodium 1 TAB BID PRN 03/04 141 AC PO Vital Signs Date Time Temp Pulse Resp B/P Pulse O2 O2 Flow FiO2 Ox Delivery Rate 03/05 0615 97.9 67 20 120/70 97 Room Air Intake & Output 03/05 0800 Intake Total 250 Output Total Balance 250 Intake, Oral 250 Physical Examination: General: 50 y/o F without any respiratory distress, vomiting, diarrhea, weight loss, chills and night sweats. The patient is afebrile. MSK Lower Extremities: On inspection the R-leg has mild rubor and edema is noted from the proximal thigh up to the ankle which painful on light palpation as well. The area of induration in the leg and thigh are very tender to palpation. The rubor and cellulitis has extended proximally over the christina that was drawn to monitor the progression of inflammation. Neurological: Normal Speech. Results Results: Laboratory Tests 03/04/16 0659: Anion Gap 3 L, Estimated GFR > 60, BUN/Creatinine Ratio 11.7, CBC w Diff NO MAN DIFF REQ, RBC 3.74 L, MCV 90.9, MCH 30.2, RDW 12.6, MPV 10.3, Gran % 59.8, Lymphocytes % 22.2, Monocytes % 16.8 H, Eosinophils % 0.8, Basophils % 0.4, Absolute Granulocytes 3.9, Absolute Lymphocytes 1.4, Absolute Monocytes 1.1 H, Absolute Eosinophils 0.1, Absolute Basophils 0, PUBS MCHC 33.2 03/04/16 0600: Hemoglobin A1c 5.3 03/03/16 1450: Urine Color YEL, Urine Clarity CLEAR, Urine pH 6.5, Ur Specific [place] <= 1.005 , Urine Protein NEG, Urine Ketones NEG, Urine Nitrite NEG, Urine Bilirubin NEG, Urine Urobilinogen 0.2, Ur Leukocyte Esterase NEG, Ur Microscopic EXAM NOT REQUIRED, Urine Hemoglobin NEG, Urine Glucose NEG 03/03/16 0624: CBC w Diff NO MAN DIFF REQ, RBC 3.90 L, MCV 89.6, MCH 30.4, RDW 12.8, MPV 10.7 H, Gran % 62.8, Lymphocytes % 19.3 L, Monocytes % 17.1 H, Eosinophils % 0.4, Basophils % 0.4, Absolute Granulocytes 4.7, Absolute Lymphocytes 1.4, Absolute Monocytes 1.3 H, Absolute Eosinophils 0, Absolute Basophils 0, PUBS MCHC 33.9 03/02/16 1945: Anion Gap 11, Estimated GFR > 60, BUN/Creatinine Ratio 15.0 Microbiology 03/03 1450 URINE ROUT: Urine Culture - RES 03/03 1221 BLOOD: Blood Culture - RES 03/03 1220 BLOOD: Blood Culture - RES Assessment/Plan Assessment: Ms. Klein is a 50 y/o F that came in to the ED due to cellulitis in the R-leg that was very painful. The patient is a smoker (1 pack/day) and has no significant past medical history. #1) The patient currently is complaining of progressive vascular pain (phlebitis ) and the pain has been increasing everyday. However, the rubor has resolved in its 75% and is now mostly localized in the proximal aspect of the medial thigh. The etiology of this patient's phlebitis still unknown since the pain scale given by the patient still elevated but the PE findings are referent to a resolving inflammatory process. #2) Yesterday the patient used the compression socks but the toes turned cyanotic, hence they were DC automatically. Plan: #1) Increase the patient's Oxycodone to 70mg due to patient's increased tolerance for opiods due to Hx of chronic pain. Start tapering Dilaudid and switch medication from IV to PO. #2) Instruct the patient to walk more often around the [place] to promote vascular flow.
--- NOTE | 2016-03-05 08:20 | PN- Vascular Surgery ---
Surgical Brief Attending Note Brief Attending Note: VASCULAR ATTENDING NOTE: Patient seen and examined today. She continues to have right thigh and lower extremity pain. Physical exam reveals stable erythema of the thigh and lower extremity Recommend restarting antibiotics Patient just started on aspirin yesterday and therefore we'll continue to observe Continue warm compress 3 times a day Continue subcutaneous heparin
--- NOTE | 2016-03-05 12:28 | PN- Infect Dx ---
Subjective Subjective: Afebrile. She continues to complain of pain in the right lower extremity. Objective Last 24 Hrs of Vital Signs/I&O Vital Signs Date Time Temp Pulse Resp B/P Pulse O2 O2 Flow FiO2 Ox Delivery Rate 03/05 0800 Room Air 03/05 0615 97.9 67 20 120/70 97 Room Air 03/04 2208 97.7 66 20 104/60 96 03/04 1413 98.9 65 20 108/80 94 Room Air Intake & Output 03/05 1600 03/05 0800 03/05 0000 Intake Total 250 200 Output Total Balance 250 200 Intake, Oral 250 200 Physical Exam Other Physical Findings: She appears comfortable in no acute distress Extremities medial right thigh tender to palpation, with decreased induration, with minimal erythema Results Last 24 Hours of Lab Results: No labs from today Last 24 Hours of Juan Results: Blood cultures March 01 negative Blood cultures March 03 negative Urine culture March 03 negative Assessment/Plan Impression: Persistent inflammation along the medial aspect of her right thigh, though improved from previous exams, most suggestive of a superficial thrombophlebitis, with the recent ultrasound confirming the presence of a thrombosed superficial vein within the right calf, with no evidence of a DVT. Her temperatures and white cell count remain normal off antibiotics and do not see any evidence for a cellulitis. Suggestion: 1. Continue symptomatic treatment for a superficial thrombophlebitis 2. Continue to follow off antibiotics
[2016-03-05 14:34] VITALS: BP 108/60
[2016-03-05 22:28] VITALS: BP 120/80
--- NOTE | 2016-03-06 05:42 | PN- Housestaff ---
ARNOLD MUSA 03/06/16 0542: Subjective Follow-up For: Superficial thrombophlebitis of right lower extremity Complaints: pain scale (0-10) Subjective: The patient was comfortably lying in her bed Celio walked into her room this morning. Stated that she still had pain in her right lower extremity, 8-10/10 in severity with no radiation. We talked about changing the intravenous medications to by mouth medications, for the ease of administration. Spoke to Dr. Garcia, who was of the opinion that the patient be treated for an infection with Unasyn for longer period of time. He would like to follow up the patient as an outpatient. Review of Systems Constitutional: Reports: see HPI. Objective Last 24 Hrs of Vital Signs/I&O Vital Signs Date Time Temp Pulse Resp B/P Pulse O2 O2 Flow FiO2 Ox Delivery Rate 03/05 2228 97.7 67 20 120/80 97 Room Air 03/05 1434 98.0 56 20 108/60 95 Room Air 03/05 0800 Room Air 03/05 0615 97.9 67 20 120/70 97 Room Air Intake & Output 03/06 0800 03/06 0000 03/05 1600 Intake Total 260 600 Output Total Balance 260 600 Intake, IV 20 Intake, Oral 240 600 Number 0 Bowel Movements Physical Exam General Appearance: No Acute Distress Other Physical Findings: General Exam: AAOx3, No acute distress, Skin: No rashes, no breakdown. Multiple indications in the right lower extremity, tender. HEENT: PERRLA, EOMI Neck: Supple, No JVD No cervical lymphadenopathy CVS: Reg Rate, Normal S1,S2, No MGR Resp: Normal air entry, no ronchi/rales Abdomen: Soft, No tenderness, Normal Bowel Sounds Neuro: Normal Speech, Strength 5/5 b/l x 4 extremities, Sensation intact, CN III -XII NL, Reflexes 2+ Extremities: No cyanosis, pedal edema Current Medications: Current Medications Sig/Allie Start time Last Medication Dose Route Stop Time Status Admin Acetaminophen 650 MG Q4P PRN 03/02 1215 AC 03/03 PO 0847 Ampicillin Sodium/ 1,500 MG Q6 03/05 1200 CAN Sulbactam Sodium IV Sodium Chloride 100 ML Aspirin 325 MG DAILY 03/04 1615 AC 03/05 PO 0850 Bisacodyl 5 MG DAILY 03/03 1000 AC 03/05 PO 0850 Heparin Sodium 5,000 UNIT Q8 03/01 1744 AC 03/06 (Porcine) SC 0413 Hydromorphone HCl 2 MG Q3P PRN 03/04 1030 AC 03/06 IV 0409 Ibuprofen 800 MG Q8P PRN 03/04 0915 AC 03/05 PO 1405 Influenza Virus 0.5 ML ONCE ONE 03/05 0930 DC 03/05 Vaccine IM 03/05 0931 1156 Melatonin 5 MG AT BEDTIME 03/02 2200 AC 03/05 PO 2152 Nicotine 14 MG DAILY 03/01 1743 AC 03/05 TOP 1055 Omeprazole 20 MG DAILY AC 03/01 1743 AC 03/06 PO 0412 Oxycodone HCl 70 MG BID 03/05 2200 AC 03/05 PO 2033 Oxycodone HCl 15 MG Q6PRN PRN 03/04 1030 03/05 PO 1541 Oxycodone HCl 50 MG BID 03/01 2200 ND 03/05 PO 0852 Patient Medication 1 UNIT ONE NR 03/05 1030 ND Teaching ED 03/05 1630 Patient Medication 1 UNIT ONE NR 03/05 1030 ND Teaching ED 03/05 1630 Senna/Docusate Sodium 1 TAB BID PRN 03/04 1415 AC PO Assessment/Plan Assessment: 50-year-old woman with self-reported hypertension not on medication, multiple surgeries in the past, is here for treatment of right leg cellulitis after failing outpt management. #1 Right lower extremity superficial thrombophlebitis- remained afebrile overnight. Leukocytosis resolved. At this time, no antibiotics. Blood cultures 2 negative. For pain-the dose of OxyContin has been increased from 70 --> 80 mg twice a day. Continue oxycodone 15 mg-at home dose. Discontinue Dilaudid. Continue Motrin/NSAID, for the treatment of thrombophlebitis. Continue aspirin 325 mg by mouth daily. Warm compresses. No anticoagulation. Bowel regimen has been added. Methyl naltrexone to be tried for opioid-induced constipation. #2 discharge disposition-physical therapy evaluation suggested home self care. Problem List: 1. Superficial thrombophlebitis 2. GERD (gastroesophageal reflux disease) Pain Ratin Pain Location: Right lower extremity Pain Goal: Pain 4 or less Pain Plan: OxyContin Oxycodone Motrin Tomorrow's Labs & Rationales: No labs necessary ARNIE SKELTONWILLIAM 03/06/16 1624: Attending MD Review Statement Attending Statement Attending MD Statement: examined this patient, discuss w/resident/PA/COMMUNICATIONS WRITER, agreed w/resident/PA/COMMUNICATIONS WRITER, reviewed EMR data (avail) Attending Assessment/Plan: 50F PMH diet-controlled HTN, gastric bypass 2008 admitted with RLE cellulitis failing outpatient therapy. Cellulitis extends from inner upper thigh to inner calf, with mild erythema, warmth, and diffuse tenderness. Reports constant pain along that area, with small area of weeping on posterior thigh. Denies fever, chills, but reports feeling ill. Started Clindamycin 3 days prior to admission and cellulitis has worsened since. No prior similar symptoms. Had a provoked DVT 20 years ago after childbirth. Swelling, erythema, and induration are all improving. Patient still experiencing 8/10 pain despite increased pain medications. Afebrile, vitals stable, labs reviewed. 1. Superficial thrombophlebitis of right extremity 2. Cellulitis of right extremity 3. Leg pain Plan - Continue warm compresses and NSAIDs - No further antibiotics - Follow blood cultures - Follow ID and vascular recommendations - Right ankle x-ray shows only edema without fracture - Increase long acting oxycodone dose to 80mg BID - Discontinue Dilaudid, resume home dose of Oxycodone 15mg q3h PRN - Bowel regimen to prevent constipation, has been given Dulcolax and Senna with no BM. Will give single dose of Relistor - DVT PPx - Seen by PT, recommends home discharge - Anticipated discharge tomorrow. Please place order and send CMR to pharmacy for review - No labs tomorrow
[2016-03-06 06:30] VITALS: BP 124/66
--- NOTE | 2016-03-06 07:11 | PN- Vascular Surgery ---
Subjective Subjective: Awake, alert Still complaining of significant pain in R thigh, especially with any movement Objective Vital Signs and I&Os Vital Signs Date Time Temp Pulse Resp B/P Pulse O2 O2 Flow FiO2 Ox Delivery Rate 03/06 0630 99.4 65 18 124/66 95 Room Air 03/05 2228 97.7 67 20 120/80 97 Room Air 03/05 1434 98.0 56 20 108/60 95 Room Air 03/05 0800 Room Air Intake & Output 03/06 0800 03/06 0000 03/05 1600 03/05 0800 03/05 0000 03/04 1600 Intake Total 620 260 600 003 839 4913 Output Total Balance 620 260 600 271 442 3592 Intake, IV 20 20 100 Intake, Oral 600 240 600 250 200 900 Number 0 Bowel Movements Physical Exam: afebrile, vss RLE examined: erythema greatly decreased as observed based on where marked lines were drawn 2 days ago. No erythema at all below the knee, above the knee only mild erythema from groin to mid medial thigh. Tender at erythematous site with palpable cord. Assessment/Plan Assessment/Plan 50 yo female with superficial thrombophlebitis RLE no antibiotics per ID Continue warm compresses, leg elevation Process seems to be resolving Ambulate as tolerated Continue asa and hep sc Continue asa at discharge
--- NOTE | 2016-03-06 07:15 | PN- Student ---
Subjective Subjective: Source: Patient History of Present Illness: Follow-up for: R-leg Cellulitis & Phlebitis Ms. Bennett is a 50 y/o F patient that came in due to painful cellulitis located at the R-leg that started distally and progressed proximally specially to the medial aspect of the thigh. During the inpatient period it was determined that the cause of cellulitis was because of an underlying phlebitis on the R-leg superficial vein. I visited the patient this morning and she was lying down supine in her bed. The patient keeps complaining about her pain level and feels that she is not receiving the appropriate dosing/rate of her pain medication. Pain scale still been 10/10; however when palpating the patient she was more tolerant when pressure was applied. She was complaining that she started noticing brownish despoits on her R-ankle, however they ae not painful or itchy. She mentioned that yesterday slept from 4-5 hours. The patient is going to put effort in increasing her physical activity today although she stated that yesterday she walked on the [place] after dinner and it was painful. The patient will be kept on monitoring however the condition seems to be improving overall. Functional Ability: ADLs Independent: dressing, eating, toileting, bathing. Ambulation: independent. IADLs Independent: shopping, housework, finances, food prep, telephone, transportation , medication admin. Review of Systems: General: Patient is in proper attire, alert and the are no signs of respiratory distress. She denies any weigt loss, night sweats, chills and fever. HEENT: NONE Cardiovascular: NONE Respiratory: NONE GI: NONE Endocrine: FHx of DM. Genitourinary: NONE Skin: No changes. Upper Limbs: NONE Lower Limbs: Refer to HPI. MSK: Hx of Chronic Back Pain (Pharmacologically Treated). Objective Objective: Current Medications Sig/Allie Start time Last Medication Dose Route Stop Time Status Admin Acetaminophen 650 MG Q4P PRN 03/02 1215 AC 03/03 PO 0847 Ampicillin Sodium/ 1,500 MG Q6 03/05 1200 CAN Sulbactam Sodium IV Sodium Chloride 100 ML Aspirin 325 MG DAILY 03/04 1615 AC 03/05 PO 0850 Bisacodyl 5 MG DAILY 03/03 1000 AC 03/05 PO 0850 Heparin Sodium 5,000 UNIT Q8 01/13 1744 AC 03/06 (Porcine) SC 0413 Hydromorphone HCl 2 MG Q3P PRN 03/04 1030 AC 03/06 IV 0651 Ibuprofen 800 MG Q8P PRN 03/04 0915 AC 03/05 PO 1405 Influenza Virus 0.5 ML ONCE ONE 03/05 0930 DC 03/05 Vaccine IM 03/05 0931 1156 Melatonin 5 MG AT BEDTIME 03/02 2200 AC 03/05 PO 2152 Nicotine 14 MG DAILY 03/01 1743 AC 03/05 TOP 1055 Omeprazole 20 MG DAILY AC 03/01 1743 AC 03/06 PO 0412 Oxycodone HCl 70 MG BID 03/05 2200 AC 03/05 PO 2033 Oxycodone HCl 15 MG Q6PRN PRN 03/04 1030 03/05 PO 1541 Oxycodone HCl 50 MG BID 03/01 220 DC 03/05 PO 0852 Patient Medication 1 UNIT ONE NR 03/05 1030 HI Teaching ED 03/05 1630 Patient Medication 1 UNIT ONE NR 03/05 1030 HI Teaching ED 03/05 1630 Senna/Docusate Sodium 1 TAB BID PRN 03/04 1415 AC PO Vital Signs Date Time Temp Pulse Resp B/P Pulse O2 O2 Flow FiO2 Ox Delivery Rate 03/05 2228 97.7 67 20 120/80 97 Room Air 03/05 1434 98.0 56 20 108/60 95 Room Air 03/05 0800 Room Air Intake & Output 03/06 0800 03/06 0000 03/05 1600 Intake Total 620 260 600 Output Total Balance 620 260 600 Intake, IV 20 20 Intake, Oral 600 240 600 Number 0 Bowel Movements Physical Examination: General: 50 y/o F without any respiratory distress, vomiting, diarrhea, weight loss, chills and night sweats. The patient is afebrile. MSK Lower Extremities: Upon ispection of the R-leg there was mild rubor and cellulitis located at the medial aspect of the thigh, however there was no progression of the inflammation compared to yesterday. There are two areas of induration on the thigh and one in the leg, all located medially and marked. Neurological: Normal Speech. Results Results: Laboratory Tests 03/04/16 0659: Anion Gap 3 L, Estimated GFR > 60, BUN/Creatinine Ratio 11.7, CBC w Diff NO MAN DIFF REQ, RBC 3.74 L, MCV 90.9, MCH 30.2, RDW 12.6, MPV 10.3, Gran % 59.8, Lymphocytes % 22.2, Monocytes % 16.8 H, Eosinophils % 0.8, Basophils % 0.4, Absolute Granulocytes 3.9, Absolute Lymphocytes 1.4, Absolute Monocytes 1.1 H, Absolute Eosinophils 0.1, Absolute Basophils 0, PUBS MCHC 33.2 03/04/16 0600: Hemoglobin A1c 5.3 03/03/16 1450: Urine Color YEL, Urine Clarity CLEAR, Urine pH 6.5, Ur Specific [place] <= 1.005 , Urine Protein NEG, Urine Ketones NEG, Urine Nitrite NEG, Urine Bilirubin NEG, Urine Urobilinogen 0.2, Ur Leukocyte Esterase NEG, Ur Microscopic EXAM NOT REQUIRED, Urine Hemoglobin NEG, Urine Glucose NEG Microbiology 03/03 1450 URINE ROUT: Urine Culture - COMP 03/03 1221 BLOOD: Blood Culture - RES 03/03 1220 BLOOD: Blood Culture - RES Assessment/Plan Assessment: Ms. Bennett is a 50 y/o F patient that came in due to painful cellulitis located at the R-leg that started distally and progressed proximally specially to the medial aspect of the thigh. #1) The patient keeps complaints regarding the pain level that she has on the L- leg. On inspection the lesion overall looks as it is improving and there is not further radiation of the rubor located on the medial thigh. Still inflammated since on palpation it was felt warm when compared to other leg but otherwise everything's normal. #2) The vascular surgeon visited the patient this morning and mentioned that the lesion is improving. Plan: #1) Change Oxycontin dose to 80mg PO; Change Dilaudid from IV to PO to start transitioning for DC. #2) There was no special indications from the vascular surgeon. Follow up in the afternoon to schedule visit with the Vascular Surgeon and the Attending physician. #Additional Plans: Prescribe Topical Lidocaine Cream (2%) to aleviate constant pain on the L-leg.
--- NOTE | 2016-03-06 14:11 | PN- Vascular Surgery ---
Surgical Brief Attending Note Brief Attending Note: VASCULAR ATTENDING NOTE: Patient seen and examined today. She continues to have right thigh and lower extremity pain. However erythema appears to be resolving. Physical exam reveals stable/improved erythema of the thigh and lower extremity Thrombophlebitis of the right leg with superimposed cellulitis now improving Continue aspirin 325 and upon discharge Continue warm compress 3 times a day Continue subcutaneous heparin May follow up as outpatient for further venous interrogation Recommend pain evaluation as patient has high narcotic base use which is likely complicating pain control
[2016-03-06 14:38] VITALS: BP 116/70
[2016-03-06] MEDS ORDERED: SENNA PLUS TAB1 EACH PO (14:38)
[2016-03-06] MEDS ORDERED: ASPIRIN325 M2 PO (14:38)
[2016-03-06] MEDS ORDERED: OXYCONTIN40 M1 PO (14:38)
[2016-03-06 23:49] VITALS: BP 112/56
--- NOTE | 2016-03-07 05:46 | PN- Housestaff ---
ARNOLD MUSA 03/07/16 0545: Subjective Follow-up For: 1. superficial thrombophlebitis Subjective: She was comfortable this morning. Pain was adequately controlled with current regimen of pain medications. Stated that she walked with the help of physical therapy yesterday and was confident that she would be able to take stairs (1 flight up) to go up to her apartment. She was afebrile overnight. Vitals were stable. Review of Systems Constitutional: Reports: see HPI. Objective Last 24 Hrs of Vital Signs/I&O Vital Signs Date Time Temp Pulse Resp B/P Pulse O2 O2 Flow FiO2 Ox Delivery Rate 03/06 2349 97.5 62 20 112/56 95 Room Air 03/06 1438 98.1 68 18 116/70 97 Room Air 03/06 0630 99.4 65 18 124/66 95 Room Air Intake & Output 03/07 0800 03/07 0000 03/06 1600 Intake Total 600 Output Total Balance 600 Intake, Oral 600 Number 0 Bowel Movements Patient 178 lb Weight Physical Exam General Appearance: No Acute Distress Other Physical Findings: General Exam: AAOx3, No acute distress Skin: No rashes, tenderness on the right lower extremity ( improved ). HEENT: PERRLA, EOMI Neck: Supple, No JVD No cervical lymphadenopathy CVS: Reg Rate, Normal S1,S2, No MGR Resp: Normal air entry, no ronchi/rales Abdomen: Soft, No tenderness, Normal Bowel Sounds Neuro: Normal Speech, Strength 5/5 b/l x 4 extremities, Sensation intact, CN III -XII NL, Reflexes 2+ Extremities: No cyanosis, pedal edema. Current Medications: Current Medications Sig/Allie Start time Last Medication Dose Route Stop Time Status Admin Acetaminophen 650 MG .STK-MED ONE 03/06 1828 DC PO 03/06 1829 Acetaminophen 650 MG Q4P PRN 03/02 1215 AC 03/06 PO 1831 Aspirin 325 MG DAILY 03/04 1615 AC 03/06 PO 0824 Bisacodyl 5 MG DAILY 03/03 1000 AC 03/06 PO 0824 Heparin Sodium 5,000 UNIT Q8 03/01 1744 AC 03/06 (Porcine) SC 2108 Hydrochlorothiazide 25 MG DAILY 03/06 1037 AC 03/06 PO 1439 Hydromorphone HCl 2 MG Q4-6 PRN PRN 03/06 0815 DC IV Hydromorphone HCl 2 MG Q3P PRN 03/04 1030 DC 03/06 IV 0651 Ibuprofen 800 MG Q8 03/06 2200 AC 03/06 PO 2109 Ibuprofen 800 MG Q8P PRN 03/04 0915 DC 03/06 PO 0824 Lidocaine 1 PAULO TIDPRN PRN 03/06 1130 AC TOP Melatonin 5 MG AT BEDTIME 03/02 2200 AC 03/06 PO 2109 Methylnaltrexone 12 MG Q48 03/06 1130 AC 03/06 [place] 1440 Nicotine 14 MG DAILY 03/01 1743 AC 03/06 TOP 1031 Omeprazole 40 MG DAILY AC 03/07 0700 AC PO Omeprazole 20 MG DAILY AC 03/01 1743 DC 03/06 PO 0412 Oxycodone HCl 80 MG BID 03/06 2200 AC 03/06 PO 2109 Oxycodone HCl 15 MG Q3P PRN 03/06 1045 AC 03/06 PO 2353 Oxycodone HCl 70 MG BID 03/05 2200 DC 03/06 PO 0823 Oxycodone HCl 15 MG Q6PRN PRN 03/04 1030 DC 03/06 PO 0940 Patient Medication 1 ED .STK-MED ONE 03/06 1417 PR Teaching ED 03/06 1418 Senna/Docusate Sodium 1 TAB BID PRN 03/04 1415 03/06 PO 0825 Sertraline HCl 100 MG DAILY 03/06 1036 AC 03/06 PO 1439 Assessment/Plan Assessment: She is an middle-aged woman with a past medical history of hypertension, multiple surgeries in the past including gastric bypass and mitral valve repair is being evaluated for redness swelling and pain in the right lower extremity. She was given an antibiotic a week ago for presumed cellulitis after which symptoms did not resolve. #1 Right lower extremity superficial thrombophlebitis- remained afebrile overnight. Leukocytosis resolved. At this time, no antibiotics. Blood cultures 2 negative. For continue current dose of OxyContin 80 mg twice a day. Pain adequately controlled. Also, continue oxycodone 15 mg-every 3 when necessary. Dilaudid has been discontinued yesterday. Continue Motrin/NSAID, for the treatment of thrombophlebitis. Continue aspirin 325 mg by mouth daily. Warm compresses. No anticoagulation. Bowel regimen and Methyl naltrexone. #2 discharge disposition-physical therapy evaluation suggested home self care. Problem List: 1. Superficial thrombophlebitis Pain Ratin Pain Location: Right lower extremity Pain Goal: Pain 4 or less Pain Plan: OxyContin Oxycodone Tomorrow's Labs & Rationales: No labs necessary ARNIE SKELTONWILLIAM 03/07/16 1208: Attending MD Review Statement Attending Statement Attending MD Statement: examined this patient, discuss w/resident/PA/DIGITAL MARKETING MANAGER, agreed w/resident/PA/DIGITAL MARKETING MANAGER, reviewed EMR data (avail) Attending Assessment/Plan: 50F PMH diet-controlled HTN, gastric bypass 2008 admitted with RLE cellulitis failing outpatient therapy. Cellulitis extends from inner upper thigh to inner calf, with mild erythema, warmth, and diffuse tenderness. Reports constant pain along that area, with small area of weeping on posterior thigh. Denies fever, chills, but reports feeling ill. Started Clindamycin 3 days prior to admission and cellulitis has worsened since. No prior similar symptoms. Had a provoked DVT 20 years ago after childbirth. Pain is resolved. Erythema resolved. Induration is improved, with no tenderness. 1. Superficial thrombophlebitis of right extremity 2. Cellulitis of right extremity 3. Leg pain Plan - Stable for discharge home - Continue warm compresses and NSAIDs - No further antibiotics - Follow ID and vascular recommendations - Continue oxycontin 80mg BID, Oxycodone 15mg q6h PRN. Stop Hydrocodone ER. - Follow up with pain clinic as an outpatient - Had bowel movement after Relistor. Will continue Senna as outpatient - Continue ASA as outpatient - June follow up with PCP Swelling, erythema, and induration are all improving. Patient still experiencing 8/10 pain despite increased pain medications. Afebrile, vitals stable, labs reviewed. 1. Superficial thrombophlebitis of right extremity 2. Cellulitis of right extremity 3. Leg pain Plan - Continue warm compresses and NSAIDs - No further antibiotics - Follow ID and vascular recommendations - Continue oxycontin 80mg BID, Oxycodone 15mg q6h PRN. Stop Hydrocodone ER. - Follow up with pain clinic as an outpatient - Had bowel movement after Relistor. Will continue Senna as outpatient - Continue ASA as outpatient - June follow up with PCP
--- NOTE | 2016-03-07 06:33 | PN- Student ---
Subjective Subjective: Source: Patient History of Present Illness: Follow-up for: R-leg Cellulitis & Phlebitis Ms. Bennett is a 50 y/o F patient that came in due to painful cellulitis located at the R-leg that started distally and progressed proximally specially to the medial aspect of the thigh. During the inpatient period it was determined that the cause of cellulitis was because of an underlying phlebitis on the R-leg superficial vein. Today I visited the patient in the morning and she was lying in bed sleeping. She mentioned that she has not been feeling the same pain as always and stated that feels alleviated. However, there is remamining pain when she stands up but nothing compared to the previous days. She denies any fever, chills, constipation and diarrhea and feels like she can go home without any possible concerns. Functional Ability: ADLs Independent: dressing, eating, toileting, bathing. Ambulation: independent. IADLs Independent: shopping, housework, finances, food prep, telephone, transportation , medication admin. Review of Systems: General: Patient is in proper attire, alert and the are no signs of respiratory distress. She denies any weigt loss, night sweats, chills and fever. HEENT: NONE Cardiovascular: NONE Respiratory: NONE GI: NONE Endocrine: FHx of DM. Genitourinary: NONE Skin: No changes. Upper Limbs: NONE Lower Limbs: Refer to HPI. MSK: Hx of Chronic Back Pain (Pharmacologically Treated). Objective Objective: Current Medications Sig/Allie Start time Last Medication Dose Route Stop Time Status Admin Acetaminophen 650 MG .STK-MED ONE 03/06 1828 DC PO 03/06 1829 Acetaminophen 650 MG Q4P PRN 03/02 1215 AC 03/06 PO 1831 Aspirin 325 MG DAILY 03/04 1615 AC 03/06 PO 0824 Bisacodyl 5 MG DAILY 03/03 1000 AC 03/06 PO 0824 Heparin Sodium 5,000 UNIT Q8 03/01 1744 03/07 (Porcine) SC 0601 Hydrochlorothiazide 25 MG DAILY 03/06 1037 AC 03/06 PO 1439 Hydromorphone HCl 2 MG Q4-6 PRN PRN 03/06 0815 DC IV Hydromorphone HCl 2 MG Q3P PRN 03/04 1030 MI 03/06 IV 0651 Ibuprofen 800 MG Q8 03/06 2200 03/07 PO 0601 Ibuprofen 800 MG Q8P PRN 03/04 0915 DC 03/06 PO 0824 Lidocaine 1 PAULO TIDPRN PRN 03/06 1130 AC TOP Melatonin 5 MG AT BEDTIME 03/02 2200 AC 03/06 PO 2109 Methylnaltrexone 12 MG Q48 03/06 1130 AC 03/06 [place] SC 1440 Nicotine 14 MG DAILY 03/01 1743 AC 03/06 TOP 1031 Omeprazole 40 MG DAILY AC 03/07 0700 AC 03/07 PO 0601 Omeprazole 20 MG DAILY AC 03/01 1743 DC 03/06 PO 0412 Oxycodone HCl 80 MG BID 03/06 2200 AC 03/06 PO 2109 Oxycodone HCl 15 MG Q3P PRN 03/06 1045 03/07 PO 0601 Oxycodone HCl 70 MG BID 03/05 2200 DC 03/06 PO 0823 Oxycodone HCl 15 MG Q6PRN PRN 03/04 1030 MI 03/06 PO 0940 Patient Medication 1 ED .STK-MED ONE 03/06 1417 MI Teaching ED 03/06 1418 Senna/Docusate Sodium 1 TAB BID PRN 03/04 1415 03/06 PO 0825 Sertraline HCl 100 MG DAILY 03/06 1036 03/06 PO 1439 Vital Signs Date Time Temp Pulse Resp B/P Pulse O2 O2 Flow FiO2 Ox Delivery Rate 03/07 0642 98.4 71 18 132/68 96 Room Air 03/06 2349 97.5 62 20 112/56 95 Room Air Physical Examination: General: 50 y/o F without any respiratory distress, vomiting, diarrhea, weight loss, chills and night sweats. The patient is afebrile. MSK Lower Extremities: Upon ispection of the R-leg there was mild rubor and cellulitis located at the medial aspect of the thigh, however there was no progression of the inflammation compared to yesterday. There are two areas of induration on the thigh and one in the leg, all located medially and marked. Neurological: Normal Speech. Assessment/Plan Assessment: Ms. Klein is a 50 y/o F that came in due to cellulitis on the R-leg which later during the inpatient course it was diagnosed as a Superficial Thrombophlebitis. Today the patient was feeling well and the pain diminished substantially. She didn't had any fever, chills or night sweats that could have been indicative of infection. The patient was changed from an IV to a PO Rx administration so that she could be discharged today since the improvement has been noticeable and the patient comfort level has been reached. Plan: - Discharge the patient. - Educate the patient on using hot pads to alleviate remaining pain on the R- Thigh. - Educate the patient on doing exercise to promote further vascular improvement. - Refer the patient to a Vascular Surgeon to follow up and to an Brewer Helper to assess glucose level (patient has a relevant FHx).
[2016-03-07 06:42] VITALS: BP 132/68
[2016-03-07] MEDS ORDERED: SENNA PLUS TAB1 EACH PO (09:41)
[2016-03-07] MEDS ORDERED: OXYCONTIN40 M1 PO (09:41)
[2016-03-07] MEDS ORDERED: ASPIRIN325 M2 PO (09:41)
[2016-03-07] MEDS ORDERED: IBUPROFEN800 M1 PO (09:46)
--- NOTE | 2016-03-07 11:17 | Discharge Summary ---
Visit Information Visit Dates Admission Date: 03/01/16 Discharge Date: 03/07/16 Hospital Course Course Attending Physician: WILLIAM GAITAN MD Primary Care Physician: AMINATA SKELTON,[facility] Course: Ms Klein is a 50 yr old woman, current smoker with a past medical history of multiple surgeries (gastric bypass, emergency , mitral valve repair), history of provoked DVT (1989), was evaluated for increased pain and redness in her right lower extremity. She was treated with clindamycin by mouth presumed cellulitis one week ago before current admission. At the time of admission, she had severe right lower extremity pain. On examination she had erythema and tenderness on the right lower extremity extending up to the medial aspect of right thigh. Also had fever-100.7, pulse rate 76, respiratory rate 20, blood pressure 125/78. Laboratory findings indicated no leukocytosis (WBC 9.0), hemoglobin 13.2, platelets 214. Normal electrolytes sodium 134, potassium 4.2, normal renal function BUN 10, serum creatinine 0.7. Blood cultures 2 were negative. An x-ray of right ankle revealed no fracture or dislocation. Ultrasound Doppler lower extremity revealed no evidence of DVT. However, a thrombosed superficial vein within the right calf was seen. Differential diagnosis: #1 superficial thrombophlebitis Below is the problem list and plan: #1 right lower extremity pain and swelling- at the time of admission, a provisional diagnosis of cellulitis was made as the patient had erythema and swelling. Treated with Unasyn for 4 days and was watched off antibiotics as ultrasound lower extremity was suggestive of superficial thrombophlebitis. Continued on Tylenol 800 mg 3 times a day and warm compress. During the stay in the hospital, she complained of severe pain and limited mobility for which she was treated with increased dose of OxyContin (80 mg twice a day), IV Dilaudid and oxycodone. Dr. Garcia-vascular surgeon and Crispin Gannon MD-infectious disease specialist was contacted for advice. She showed marked improvement both in symptoms and also physical signs, at the time of discharge. She was discharged home with the recommendation to follow-up with the primary care physician, vascular surgeon and pain management clinic for refill of prescriptions. Allergies: Coded Allergies: Penicillins (UNKNOWN 07/24/15) vancomycin (UNKNOWN 07/24/15) Pertinent Lab Results: US - US-DUPLEX VENOUS EXTREM The right common femoral vein is compressible and exhibits a normal phasic waveform; this suggests that the iliac veins are widely patent above. Within the proximal thigh, the visualized profunda femoris vein is patent and the examined greater saphenous vein and saphenofemoral junction are normal. Superficial femoral vein is patent in the proximal, mid and distal thigh. Popliteal vein appears normal to the level of the trifurcation, and the visualized deep calf veins are unremarkable. There is subcutaneous tissue edema within the calf. No evidence of Mccord's cyst. The blood bank technologist identified a thrombosed, noncompressible, superficial vein within the calf. Within the right groin, the largest lymph node is 1 cm short axis dimension and it has a normal fatty hilum and has a normal long-and short axis measurement ratio of > 2. --- Disposition Summary Disposition Principal Diagnosis: Superficial thrombophlebitis Additional Diagnosis: Hypertension Discharge Disposition: home or self care Discharge Instructions General Discharge Information Code Status: Full Code Patient's Diet: Heart healthy diet Patient's Activity: As tolerated Follow-Up Instructions/Appts: #1 please follow-up with your primary care provider within 1-2 weeks of discharge. #2 please follow up with her vascular surgeon-Dr. wilburn within 1-2 weeks of discharge. #3 please take your medications as prescribed. #4 warm compresses and leg elevation of the right lower extremity for symptomatic relief. Medications at Discharge Discharge Medications: Stop taking the following medications: Hydrocodone Bitartrate (Zohydro ER) 50 MG CAP.ER.12H ORAL TWICE DAILY Qty = 60 Continue taking these medications: DIPHENHYDRAMINE HCL (Benadryl Allergy) 25 MG TABLET 1-2 Tablet ORAL EVERY SIX HOURS NEEDED as needed for allergy Qty = 30 Oxycodone HCl (Oxycodone HCl) 15 MG TABLET 1 Tablet ORAL 4 TIMES A DAY Qty = 120 Comments: Last Taken: 03/07/16 TIME: 1 PM Omeprazole (Omeprazole) 40 MG CAPSULE.DR 1 Capsule ORAL DAILY Qty = 30 Comments: Last Taken: 03/07/16 Time: 6AM Sertraline HCl (Sertraline HCl) 100 MG TABLET 1 Tablet ORAL DAILY Qty = 30 Comments: Last Taken: 03/07/16 Time: 9 AM Triamterene/Hydrochlorothiazid (Triamterene-Hctz 37.5-25 MG Tb) 1 EACH TABLET 1 Tablet ORAL DAILY Qty = 30 Comments: Last Taken: 03/07/16 Time: 9 AM Start taking the following new medications: Oxycodone HCl (Oxycontin) 40 MG TAB.ER.12H 80 Milligram ORAL TWICE DAILY Qty = 20 No Refills Instructions: PLEASE FOLLOW UP WITH YOUR PAIN CLINIC FOR REFILLS Comments: Last Taken:03/07/16 TIME: 9 AM Aspirin (Aspirin*) 325 MG TABLET 325 Milligram ORAL DAILY Qty = 30 No Refills Instructions: . Comments: Last Taken: 03/07/16 Time: 9AM Sennosides/Docusate Sodium (Senna Plus Tablet) 8.6 MG-50 MG TABLET 1 Tablet ORAL TWICE DAILY as needed for CONSTIPATION Qty = 30 No Refills Instructions: . Comments: Last Taken: 03/06/16 Time: 10AM Nicotine (Nicotine Patch) 14 MG/24 HOUR PATCH.TD24 14 Milligram On the skin DAILY Days = 30 No Refills Comments: Last Taken: 03/07/16 Time: 10AM Lidocaine HCl (Lidocaine HCl) 2 % JEL..ML. 1 Application On the skin THREE TIMES A DAY NEEDED as needed for PAIN Qty = 30 No Refills Comments: NOT GIVEN IN HOSPITAL Ibuprofen (Ibuprofen) 800 MG TABLET 1 Tablet ORAL THREE TIMES DAILY Qty = 15 No Refills Comments: Last Taken: 03/07/16 Time: 6AM Copies To: AMINATA SKELTON,JESUS MURPHY; IWONA SKELTON,KATTY Palacios MD Review Statement Documenting Attending: WILLIAM GAITAN MD
[2016-03-07] MEDS ORDERED: LIDOCAINE HCL5 ML TOP (11:40)
[2016-03-07] MEDS ORDERED: NICOTINE PATCH1 EAC2 TOP (11:40)
== END 2016-03-07 13:32 | DRG 300 ==
LOC: ENRESERVDT → ENRESERVTM → ERH 14:11 → ENPENDDIS 16:43 → 2NA 16:43 → ERHI 16:43 → 2NA 19:45
PROVIDERS: Internal Medicine; Physician Assistant Medical; Student in an Organized Health Care Education/Training Program; ADMIT Internal Medicine
DX: I80.8 Phlebitis and thrombophlebitis of other sites (principal); L03.115 Cellulitis of right lower limb; I10 Essential (primary) hypertension; K21.9 Gastro-esophageal reflux disease without esophagitis; F17.200 Nicotine dependence, unspecified, uncomplicated
CPT/HCPCS: 2NAP; 2NASP; 36415; 73610-RT; 81003; 82436; 87040; 87086; 96374; 96375; 97116-GO; 97161-GP; 97530-GO; J1644; J1885; Q2036